=== PATIENT | female | born 1990 | race Two or more races ===

== ENCOUNTER 2021-05-29 11:40 | Emergency (ER) | payer MEDICAID, SELFPAY ==
[2021-05-29 12:03] VITALS: BP 130/74; PULSE 95; RESP 18; TEMP 36.9; O2SAT 99; BMI 30.1
--- NOTE | 2021-05-29 12:48 | ED_ITS ---
HPI - URI/Sore Throat General Chief Complaint: Upper Respiratory Symptoms Stated Complaint: cough, congestion Time Seen by Provider: 05/29/21 12:47 Source: patient Mode of arrival: ambulatory Limitations: language barrier History of Present Illness HPI Narrative: 30-year-old female presents for 3 days of headache, cough, nasal congestion, nausea, sore throat, shortness of breath. Patient lives with her significant other who has tested COVID positive. No fevers, no vomiting, no diarrhea, patient can eat and drink and is tolerating oral Patient is vaccinated with 2 vaccinations but no booster yet Related Data Previous Rx's Medication Instructions Recorded albuterol sulfate 90 mcg/actuation 2 puff INHALATION Q4-6H PRN #8.5 g 05/29/21 aerosol inhaler Allergies Allergy/AdvReac Type Severity Reaction Status Date / Time No Known Allergies Allergy Unverified 02/15/20 16:07 [No Known Allergies*] Review of Systems Constitutional: Constitutional: Reports body ache(s), Reports chills, Reports fatigue, Denies fever(s), Reports headache(s), Reports malaise and Denies weakness Eyes: Eyes: Denies diplopia ENT: Denies vertigo, Denies dizziness, Denies otalgia, Reports headache(s), Denies mouth pain, Denies post nasal drip, Denies sinus pain, Denies sinus pressure, Reports sore throat and Denies throat swelling Cardiovascular: Cardiovascular: Denies chest pain, Denies syncope, Denies leg edema, Denies lightheadedness, Denies Loss of Consciousness, Denies palpitations and Reports dyspnea Respiratory: Respiratory: Denies chest congestion, Reports cough and Reports dyspnea Gastrointestinal: Gastrointestinal: Denies abdominal pain, Denies hematochezia, Denies constipation, Denies diarrhea, Reports nausea and Denies vomiting Musculoskeletal: Musculoskeletal: Reports no additional musculoskeletal complaints Neurologic: Denies confusion, Denies vertigo, Denies dizziness, Denies syncope, Reports headache(s) and Denies weakness Psychiatric: Psychiatric: Denies anxiety, Denies confusion and Denies depression Endocrine: Endocrine: Reports fatigue and Denies palpitations Allergic/Immunologic: Allergic/Immunologic: Denies throat swelling PMFSH Social History Social History Advance Directives: No Advance Directives Information Provided: No Patient : No Physical Exam Vital Signs: Vital Signs: Last Vital Signs Temp 98.4 F 05/29/21 12:03 Pulse 95 05/29/21 12:03 Resp 18 05/29/21 12:03 BP 130/74 05/29/21 12:03 Pulse Ox 99 05/29/21 12:03 BMI result Body Mass Index 30.1 Const: General: No confusion Nutritional Appearance: well nourished Orientation/consciousness: No confusion Limitations: no limitations HENMT: Head: Yes normal to inspection, Yes normocephalic and Yes atraumatic Ears: hearing grossly normal bilaterally, external ears normal, TM's normal bilaterally and EAC's normal General nose exam: Normal external nose present Face and sinus: Yes normal facial exam and Yes sinuses nontender Mouth: moist mucous membranes Throat: Yes posterior oropharynx abnormal (Erythematous, no exudate) Eyes: Conjunctivae: conjunctivae normal Pupils: Equal, round and reactive pupils present EOM: EOMs intact bilaterally Neck: Neck: Yes full ROM, Yes no lymphadenopathy and Yes supple Resp: Effort & Inspection: normal respiratory effort and able to speak in complete sentences Auscultation: no crackles, no rales, no rhonchi, no wheezes and diminished lung sounds diffuse Cardio: Rate: regular rate Rhythm: regular rhythm Heart sounds: S1 normal heart sound present and S2 normal heart sound present GI: Inspection: Yes normal to inspection Palpation (GI): Soft to palpation, nontender, no guarding and not rigid Percussion: Yes normal to percussion Auscultation: normal bowel sounds Skin: General skin exam: no rashes or lesions noted Neuro: General: No confusion Cranial nerves: Yes Equal, round and reactive pupils present Extrem: General: Yes normal to inspection and Yes full ROM Psych: Appearance: grossly normal Affect: normal affect Attitude: coop erative Thought process: Normal thought process present Course Course Course Narrative: 30-year-old female with COVID like symptoms who lives with someone who tested COVID positive today but who tested COVID negative herself today presents to the ER for symptoms for 3 days. On exam, patient has stable vitals, she is satting 99% on room air, she is afebrile. Lungs are mildly diminished to auscultation. After albuterol treatment, patient is moving more air, and says she does not feel short of breath any longer. Will prescribe albuterol inhaler, counseled push fluids, rest, quarantine for 10 days despite negative COVID test, patient would probably test positive for COVID in the next day or so. All questions answered to patient's satisfaction. MDM - URI/Sore Throat Lab Data Labs: Lab Results 05/29/21 Range/Units 14:09 COVID-19 (JESÚS) Negative (Negative) COVID-19 Clin Com See Note Discharge Plan Discharge Clinical Impression: Upper respiratory infection Patient Disposition: Home, Self-Care Additional Instructions: You tested negative for COVID today. However your is positive, and you have all the symptoms. I would like you to stay home and quarantine for 10 days now provided you a note for that. I have also prescribed an albuterol inhaler. Please quarantine for 10 days, rest, drink fluids, take Tylenol, if you have worsening shortness of breath or chest pain, please return to the emergency room Hoy sobeida negativo para COVID. Sin embargo, frausto esposo es positivo y usted tiene todos los s?ntomas. Me gustar?a que se quedara en casa y se pusiera en cuarentena denis 10 d?as y ahora le proporcion? modesta nota para eso. Tambi?n le he recetado un inhalador de albuterol. Por favor, p?ngase en cuarentena denis 10 d?as, descanse, alexander l?quidos, tome Tylenol, si tiene dificultad para respirar o dolor en el pecho que empeora, regrese a la asaf de emergencias Prescriptions: New albuterol sulfate 90 mcg/actuation HFA aerosol inhaler 2 puff inhalation Q4-6H PRN (Reason: shortness of breath or wheezing) Qty: 8.5 RF: 0 Stand Alone Forms: Work/School Release Print Language: Sammarinese
[2021-05-29] MEDS: Albuterol Sulfate 90 MCG 8 GM INHALER 2 PUFF INHALE (13:45)
[2021-05-29] MEDS: Ibuprofen 800 MG TABLET PO (14:08)
[2021-05-29 14:51] LABS: COVID-19 Test Negative (Negative); IDNOW Serial# 9DD0AD1C
== END 2021-05-29 16:45 | disposition home or self-care (01) ==
PROVIDERS: Physician Assistant; Emergency Provider Emergency Medicine; PCP Internal Medicine
DX: J06.9 Acute upper respiratory infection, unspecified (principal); R05.9 Cough, unspecified; R06.02 Shortness of breath; R51.9 Headache, unspecified; Z20.822 Contact with and (suspected) exposure to COVID-19
CPT/HCPCS: 36415; 87635; 99283; 99284

== ENCOUNTER 2022-01-21 14:56 | Outpatient (REF) | payer MEDICAID, SELFPAY ==
[2022-01-21 15:17] LABS: MANUAL DIFF FLAG NO
[2022-01-21 15:42] LABS: Basophils Percent Auto 0.2 % (0-2); Eosinophils Percent Auto 0.5 % (0-4); Hematocrit 44.7 % (37.0-47.0); Hemoglobin 14.7 g/dl (12.0-16.0); Imm Gran Abs Auto 0.02 X10*3/uL (0.00-0.03); Imm Gran Pct Auto 0.2 % (0.0-0.4); Lymphocytes Absolute Auto 2.5 X10*3/uL (1.2-4.9); Lymphocytes Percent Auto 28.1 % (20-40); Mean Corpuscular HGB Conc 32.9 g/dl (31.0-35.0); Mean Corpuscular Hemoglobin 30.4 pg (27.0-33.0); Mean Corpuscular Volume 92.4 fL (80.0-98.0); Mean Platelet Volume 11.8 fL (9.4-12.3); Monocytes Absolute Auto 0.7 X10*3/uL (0.1-1.2); Monocytes Percent Auto 7.4 % (2-11); Neutrophils Absolute Auto 5.6 x10*3/uL (2.0-8.3); Neutrophils Percent Auto 63.6 % (45-73); Platelet Count 297 X10*3/uL (160-400); Red Blood Count 4.84 X10*6/uL (4.20-5.50); Red Cell Distribution Width 13.2 % (11.0-16.0); White Blood Count 8.8 X10*3/uL (4.8-10.8)
[2022-01-21 16:08] LABS: Alanine Aminotransferase 13 U/L (0-31); Albumin Level 4.1 g/dL (3.5-5.0); Alkaline Phosphatase 83 U/L (39-117); Anion Gap 14 (12-20); Aspartate Amino Transferase 13 U/L (5-31); Bilirubin Total 0.5 mg/dL (0.0-1.0); Blood Urea Nitrogen 12 mg/dL (9-16); Calcium 9.3 mg/dL (8.4-10.2); Carbon Dioxide 27 mmol/L (22-29); Chloride 104 mmol/L (96-108); Cholesterol 116 mg/dL; Estimated Glomerular Filt Rate > 60; Glucose Random 94 mg/dL (60-115); HDL Cholesterol 53 mg/dL; LDL Cholesterol Calculated 35 mg/dl; Potassium 4.7 mmol/L (3.3-5.1); Sodium 140 mmol/L (135-145); Total Protein 7.2 g/dL (6.5-8.0); Triglycerides 140 mg/dL
[2022-01-24 00:36] LABS: TS Negative Control Passed; TS Panel A 0; TS Panel B 0; TS Positive Control Passed; TSpotTB Negative (Negative)
== END 2022-01-21 14:57 | disposition home or self-care (01) ==
LOC: HO.LAB 14:56
PROVIDERS: PCP Internal Medicine; Visit Provider Internal Medicine
DX: Z00.00 Encounter for general adult medical examination without abnormal findings (principal); Z11.1 Encounter for screening for respiratory tuberculosis; H53.8 Other visual disturbances; G44.209 Tension-type headache, unspecified, not intractable
CPT/HCPCS: 36415; 80053; 80061; 85025; 86481

== ENCOUNTER 2022-07-02 08:58 | Outpatient (RCR) | payer MEDICAID, SELFPAY | END 2022-07-31 08:19 | disposition home or self-care (01) | LOC: HO.PT 08:58 | PROVIDERS: PCP Internal Medicine; Visit Provider Internal Medicine | DX: M54.50 Low back pain, unspecified (principal) | CPT/HCPCS: 97140; 97161 ==

== ENCOUNTER 2022-12-07 12:16 | Emergency (ER) | payer MEDICAID, SELFPAY ==
--- NOTE | ~2022-12-07 | US_ITS ---
EXAMINATION: US OBSTETRICAL ULTRASOUND CLINICAL INFORMATION: Lower abdominal pain. 9 weeks COMPARISON: None available. LMP: 09/03/2022. Gestational age by maternal dates is 13 weeks 4 days. Estimated date of delivery by maternal dates is 06/10/2023. TECHNIQUE: Both transabdominal endovaginal scanning was performed. FINDINGS: There is a single intrauterine gestational sac with visible yolk sac, embryo/fetus, and cardiac activity. There is no significant subchorionic hemorrhage or hematoma. HR: 174 beats per minute. CRL (crown rump length): 2.02 cm (8 weeks 5 days +/- 4 days). HARIS (estimated date of delivery): 07/14/2023 +/- 4 days. MATERNAL ADNEXA: The right maternal ovary measures 2.8 x 1.8 x 1.7 cm. The left maternal ovary measures 3.4 x 2.3 x 1.9 cm which includes a 2.0 x 1.9 x 1.8 cm corpus luteum cyst. There is no significant maternal adnexal mass. No maternal pelvic ascites. US/US OB pelvic and transvaginal IMPRESSION: 1. Single intrauterine gestation with ultrasound gestational age of 8 weeks 5 days +/- 4 days. 2. Estimated date of delivery is 07/14/2023 +/- 4 days. 3. No maternal adnexal mass or pelvic ascites.
--- NOTE | 2022-12-07 12:36 | ED.GENADULT ---
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 She is a G3 T1 L1, with reported last menstrual period 09/03/2022, with estimated due date 06/12/2022 was not yet received obstetric care, has appointment scheduled for 12/14/2022 through [facility]. She states that this morning she was bending forward when she realized she has developed sudden pain to the lower abdomen. Pain is localized diffusely across the lower abdomen at times is worse on 1 side or the other. Pain is made worse with particular movements. She does report associated nausea for which she has already been prescribed Reglan outpatient which has been helping. She denies fevers, chills, upper abdominal pain, dysuria, urinary frequency/urgency/hesitancy, the patient, diarrhea, vaginal bleeding, abnormal vaginal discharge. Related Data Previous Rx's Medication Instructions Recorded albuterol sulfate 90 mcg/actuation 2 puff inhalation Q4-6H PRN 05/29/21 aerosol inhaler shortness of breath or wheezing #8.5 grams Allergies Allergy/AdvReac Type Severity Reaction Status Date / Time No Known Allergies Allergy Verified 12/07/22 12:36 [No Known Allergies*] Review of Systems Review of Systems: Constitutional : No Weight loss, No Fever, No Chills ENT/Mouth :? No sore throat, No Rhinorrhea Eyes: No Swelling, No Redness Cardiovascular : No Chest Pain, No SOB, No Edema Respiratory : No Cough, No Sputum, No Wheezing Gastrointestinal : Positive Nausea, no Vomiting, no Diarrhea, positive abdominal pain, No Hematochezia, No Melena Genitourinary : No Dysuria, No Urinary Frequency, No Hematuria, No Urgency? Musculoskeletal : No joint pain, No Myalgias, No Joint Swelling Skin : No Skin Lesions, No rash Neuro : No Weakness, No Numbness, No Dizziness, No Headache Psych : No Anxiety/Panic, No Depression Heme/Lymph: No Bruising, No Lymphadenopathy Endocrine : No Polyuria, No Polydipsia Yes all other systems are reviewed and are negative [facility] Past Medical History Attestation statement: The following information was validated with the patient. Source: old records reviewed Social History Social History Alcohol intake: never Smoked in Last 30 Days: No Use of substances other than those prescribed or required for medical reasons: No Advance Directives: No Advance Directives Information Provided: No Patient : Yes Physical Exam ED Vital Signs: Vital Signs - 24 hr 12/07/22 12:37 12/07/22 16:20 12/07/22 18:42 Temperature 98 F 98.4 F Pulse Rate 99 82 89 Respiratory Rate 19 18 16 Blood Pressure 130/80 127/77 117/76 Pulse Oximetry 96 99 98 Oxygen Delivery Method Room Air Room Air Room Air BMI result Body Mass Index 30.1 Appearance: Alert.?Oriented to person, place and time. No acute distress.?Normal affect. Eyes: Pupils equal, round and reactive to light.? ENT: Pharynx normal.?? Neck: Normal inspection.? Neck supple.?? CVS: Heart sounds normal. Normal heart rate and rhythm.? Pulses normal.?? Respiratory: No respiratory distress.? Lung sounds clear to auscultation bilaterally?? Abdomen: Soft and non-tender. Normoactive bowel sounds. Skin: Skin warm and dry.? Normal skin color.? Extremities: No lower extremity edema.? Neuro: Moves all extremities spontaneously. Sensation intact bilaterally. No focal neuro deficits. Ambulates with normal steady gait. Course Course Course Narrative: This is an RME: Additional HPI, ROS, PE not included below will be deferred to primary provider. Patient is a 32 yo female who reports she is 9 weeks presenting with lower abdominal pain for a few hours. Patient has not yet recieved an ultrasound to confirm intrauterine . Patient reports nausea. patient denies vaginal bleeding, trauma to the abdomen, or vomiting. Patient is A1. Plan: Labs Reevaluation(s) Reevaluation #1: Ultrasound revealing a single intrauterine gestation with gestational age of 8 weeks 5 days, no adnexal mass present. At this time suspect pain to be most likely musculoskeletal in nature, as it is exacerbated with movement. Discussed with patient the use of acetaminophen for pain, avoidance of NSAIDs during . Reviewed worrisome signs and symptoms that would warrant re-evaluation in the emergency department. All questions were answered. Stable for discharge. Outpatient follow-up with her obstetrics provider as scheduled Time: 19:24 Medical Decision Making Medical Decision Making [facility] Narrative: Patient is a 32-year-old female G3 T1 L1 with no reported past medical history presenting to emergency department for evaluation of abdominal pain in the setting of . At the time my examination she is overall well-appearing. She is afebrile without tachycardia. Reviewed serum labs obtained from rapid medical examination, mild leukocytosis which may be in part reactive due to nausea/vomiting, CMP is overall unremarkable. HCG consistent with 6-12 weeks. Urinalysis is without any evidence of infection. Will obtain pelvic ultrasound to confirm intrauterine and/or potential complication. Lower suspicion for appendicitis/diverticulitis at this time. Differential Diagnosis Differential Diagnoses: The differential diagnosis associated with the presentation includes (Urinary tract infection, musculoskeletal pain, ectopic , ovarian cyst, diverticulitis, appendicitis) Admission/Observation Consideration of admission/observation: Escalation of care including admission/observation considered (I considered admission for abdominal pain in the setting of , see further elaboration in course) Lab Data [facility] Lab Attestation statement: I reviewed the patient's lab results. (See narrative above) 12/07/22 13:30 12/07/22 13:30 Labs: Lab Results 12/07/22 12/07/22 12/07/22 Range/Units 13:30 13:30 13:30 WBC 13.8 H (4.8-10.8) X10*3/uL RBC 4.60 (4.20-5.50) X10*6/uL Hgb 13.7 (12.0-16.0) g/dl Hct 41.7 (37.0-47.0) % MCV 90.7 (80.0-98.0) fL MCH 29.8 (27.0-33.0) pg MCHC 32.9 (31.0-35.0) g/dl RDW 12.9 (11.0-16.0) % Plt Count 367 (160-400) X10*3/uL MPV 10.4 (9.4-12.3) fL Immature Gran % (Auto) 0.3 (0.0-0.4) % Neut % (Auto) 75.9 H (45-73) % Lymph % (Auto) 14.8 L (20-40) % [place] % (Auto) 8.6 (2-11) % Eos % (Auto) 0.2 (0-4) % Baso % (Auto) 0.2 (0-2) % Lymph # (Auto) 2.0 (1.2-4.9) X10*3/uL [place] # (Auto) 1.2 (0.1-1.2) X10*3/uL Eos # (Auto) 0.0 (0.0-0.4) X10*3/uL Baso # (Auto) 0.0 (0.0-0.2) X10*3/uL Abs Immat Gran (auto) 0.04 H (0.00-0.03) X10*3/uL Absolute Neuts (auto) 10.4 H (2.0-8.3) x10*3/uL Absolute Nucleated RBC 0.000 (0.0-0.012) X10*3/uL Nucleated RBC % (auto) 0.0 (0.0-0.2) /100WBC Sodium 139 (135-145) mmol/L Potassium 3.8 (3.3-5.1) mmol/L Chloride 105 (96-108) mmol/L Carbon Dioxide 23 (22-29) mmol/L Anion Gap 15 (12-20) BUN 7 L (9-16) mg/dL Creatinine 0.75 (0.5-1.4) mg/dL Estim Creat Clear Calc 106.8 Estimated GFR > 60 Random Glucose 89 (60-115) mg/dL Calcium 9.9 D (8.4-10.2) mg/dL Magnesium 1.9 (1.6-2.6) mg/dL Total Bilirubin 0.2 (0.0-1.0) mg/dL AST 14 (5-31) U/L ALT 12 (0-31) U/L Alkaline Phosphatase 60 (39-117) U/L Total Protein 6.7 (6.5-8.0) g/dL Albumin 3.7 (3.5-5.0) g/dL Beta HCG, Quant 57785 mIU/mL Urine Color Urine Appearance Urine pH (5.0-9.0) Ur Specific [place] (1.005-1.025) Urine Protein (Neg-Trace) mg/dL Urine Glucose (UA) (Negative) mg/dL Urine Ketones (Negative) mg/dL Urine Blood (Negative) Urine Nitrite (Negative) Ur Leukocyte Esterase (Negative) COVID-19 (JESÚS) (Negative) COVID-19 Clin Com 12/07/22 12/07/22 Range/Units 13:30 17:58 WBC (4.8-10.8) X10*3/uL RBC (4.20-5.50) X10*6/uL Hgb (12.0-16.0) g/dl Hct (37.0-47.0) % MCV (80.0-98.0) fL MCH (27.0-33.0) pg MCHC (31.0-35.0) g/dl RDW (11.0-16.0) % Plt Count (160-400) X10*3/uL MPV (9.4-12.3) fL Immature Gran % (Auto) (0.0-0.4) % Neut % (Auto) (45-73) % Lymph % (Auto) (20-40) % [place] % (Auto) (2-11) % Eos % (Auto) (0-4) % Baso % (Auto) (0-2) % Lymph # (Auto) (1.2-4.9) X10*3/uL [place] # (Auto) (0.1-1.2) X10*3/uL Eos # (Auto) (0.0-0.4) X10*3/uL Baso # (Auto) (0.0-0.2) X10*3/uL Abs Immat Gran (auto) (0.00-0.03) X10*3/uL Absolute Neuts (auto) (2.0-8.3) x10*3/uL Absolute Nucleated RBC (0.0-0.012) X10*3/uL Nucleated RBC % (auto) (0.0-0.2) /100WBC Sodium (135-145) mmol/L Potassium (3.3-5.1) mmol/L Chloride (96-108) mmol/L Carbon Dioxide (22-29) mmol/L Anion Gap (12-20) BUN (9-16) mg/dL Creatinine (0.5-1.4) mg/dL Estim Creat Clear Calc Estimated GFR Random Glucose (60-115) mg/dL Calcium (8.4-10.2) mg/dL Magnesium (1.6-2.6) mg/dL Total Bilirubin (0.0-1.0) mg/dL AST (5-31) U/L ALT (0-31) U/L Alkaline Phosphatase (39-117) U/L Total Protein (6.5-8.0) g/dL Albumin (3.5-5.0) g/dL Beta HCG, Quant mIU/mL Urine Color Yellow Urine Appearance Clear Urine pH 5.5 (5.0-9.0) Ur Specific [place] 1.015 (1.005-1.025) Urine Protein Negative (Neg-Trace) mg/dL Urine Glucose (UA) Negative (Negative) mg/dL Urine Ketones Negative (Negative) mg/dL Urine Blood Negative (Negative) Urine Nitrite Negative (Negative) Ur Leukocyte Esterase Negative (Negative) COVID-19 (JESÚS) Negative (Negative) COVID-19 Clin Com See Note Independent Interpretation I performed an independent interpretation of an: Ultrasound Radiology Impression Discussion of test interpretation with radiology: I have reviewed the radiologist's reading. Radiologist Impression: US/US OB pelvic and transvaginal IMPRESSION: 1. Single intrauterine gestation with ultrasound gestational age of? 8 weeks 5 days +/- 4 days. 2. Estimated date of delivery is 07/14/2023 +/- 4 days. 3. No maternal adnexal mass or pelvic ascites. Tests considered The following testing was considered but not selected: Considered CT of the abdomen and pelvis for evaluation of diverticulitis/appendicitis however given she is currently have a lower suspicion based on clinical examination at this time CT imaging was deferred. Discharge Plan Discharge Clinical Impression: Abdominal pain Patient Disposition: Home, Self-Care Instructions: Abdominal Pain (ED) Additional Instructions: As discussed your blood work today was overall normal. Your urine does not show any evidence of infection. Your ultrasound shows that you have an intrauterine , this is a normal finding. It is estimated that you are approximately 8 weeks with estimated due date of 07/14/2023. Please follow-up with your OB provider for further management. You can take Tylenol 500 mg, 2 tablets (1,000mg) every 4-6 hours as needed for pain, but not to exceed 3 doses daily (3,000mg).? Please return back to the emergency department any new or worsening symptoms or concerns. Prescriptions: No Action albuterol sulfate 90 mcg/actuation HFA aerosol inhaler 2 puff inhalation Q4-6H PRN (Reason: shortness of breath or wheezing) Qty: 8.5 0RF Referrals: Alejandrina Miller MD [Primary Care Provider] -
[2022-12-07 12:37] VITALS: BP 130/80; PULSE 99; RESP 19; TEMP 36.6; O2SAT 96; BMI 30.1
[2022-12-07 13:52] LABS: Alanine Aminotransferase 12 U/L (0-31); Albumin Level 3.7 g/dL (3.5-5.0); Alkaline Phosphatase 60 U/L (39-117); Anion Gap 15 (12-20); Aspartate Amino Transferase 14 U/L (5-31); Bilirubin Total 0.2 mg/dL (0.0-1.0); Blood Urea Nitrogen 7 mg/dL (9-16); Calcium 9.9 mg/dL (8.4-10.2); Carbon Dioxide 23 mmol/L (22-29); Chloride 105 mmol/L (96-108); Creatinine Clr Calc Pharmacy 106.8; Estimated Glomerular Filt Rate > 60; Glucose Random 89 mg/dL (60-115); Magnesium 1.9 mg/dL (1.6-2.6); Potassium 3.8 mmol/L (3.3-5.1); Sodium 139 mmol/L (135-145); Total Protein 6.7 g/dL (6.5-8.0)
[2022-12-07 16:20] VITALS: BP 127/77; PULSE 82; RESP 18; O2SAT 99
[2022-12-07 18:05] LABS: Appearance Urine Clear; Color Urine Yellow; Glucose Urine UA Negative (Negative); Leukocyte Esterase Urine Negative (Negative); Nitrite Urine Negative (Negative); PH 5.5 (5.0-9.0); Specific Gravity - Urine 1.015 (1.005-1.025); Urine Blood Negative (Negative); Urine Ketones Negative (Negative); Urine Protein Negative (Neg-Trace)
[2022-12-07 18:42] VITALS: BP 117/76; PULSE 89; RESP 16; TEMP 36.9; O2SAT 98
--- NOTE | 2022-12-07 19:48 | PC.NURSE ---
Reviewed discharge instruction with pt, pt verbalized understanding. no sob or chest pian. No sign of distress.
--- NOTE | 2022-12-07 19:50 | PC.NURSE ---
Notified ARI guerrero pt was discharge by this RN.
== END 2022-12-07 19:51 | disposition home or self-care (01) ==
PROVIDERS: Physician Assistant; Emergency Provider Internal Medicine; PCP Internal Medicine
DX: O26.91 Pregnancy related conditions, unspecified, first trimester (principal); R10.2 Pelvic and perineal pain; Z3A.09 9 weeks gestation of pregnancy; Z20.822 Contact with and (suspected) exposure to COVID-19; Z20.828 Contact with and (suspected) exposure to other viral communicable diseases; Z79.899 Other long term (current) drug therapy
CPT/HCPCS: 36415; 76801; 76817; 80053; 81003; 83735; 84702; 85025; 87635; 99284

== ENCOUNTER 2023-05-19 14:16 | Emergency (ER) | payer MEDICAID, SELFPAY ==
[2023-05-19 14:21] VITALS: BP 129/84; PULSE 113; RESP 19; TEMP 36.6; O2SAT 98; BMI 35.1
--- NOTE | 2023-05-19 14:39 | ED_ITS ---
HPI - General Adult General Chief complaint: General Medical Stated complaint: 36 Wks W/Flu Symptoms Time Seen by Provider: 05/19/23 14:54 Source: patient Mode of arrival: ambulatory Limitations: no limitations History of Present Illness HPI narrative: 32 YOLD FEMALE 36 WEEKS A1 presents to the ED abdominal pain that is constant and described as pressure with generalized body aches. Patient denies any vaginal discharge or vaginal bleeding. Patient denies any clear liquid discharge from vaginal area. Patient denies any recent trauma. Patient states no chest pain or shortness of breath. Related Data Previous Rx's Medication Instructions Recorded albuterol sulfate 90 mcg/actuation 2 puff inhalation Q4-6H PRN 05/29/21 aerosol inhaler shortness of breath or wheezing #8.5 grams Allergies Allergy/AdvReac Type Severity Reaction Status Date / Time No Known Allergies Allergy Verified 12/07/22 12:36 [No Known Allergies*] Review of Systems Review of Systems: Abdominal pain described as pressure 36 weeks Yes all other systems are reviewed and are negative [facility] Social History Social History Alcohol intake: never Advance Directives: No Advance Directives Information Provided: No Physical Exam ED Vital Signs: Vital Signs - 24 hr 05/19/23 14:21 05/19/23 16:48 Temperature 98 F Pulse Rate 113 H Respiratory Rate 19 116 H Blood Pressure 129/84 145/69 H Pulse Oximetry 98 100 Oxygen Delivery Method Room Air Room Air BMI result Body Mass Index 35.1 Const General: cooperative, healthy appearing, comfortable, no acute distress, well developed, alert, awake and Physically active Orientation/consciousness: oriented to person, oriented to place, oriented to time and patient oriented x3 HENMT Head: Yes normal to inspection, Yes No palpable skull fracture present, Yes normocephalic and Yes atraumatic Throat: Yes posterior oropharynx normal, Yes tonsils normal and Yes uvula midline Eyes General: appearance normal, both eyes and all related structures Neck Neck: Yes normal visual inspection, Yes full ROM, Yes no lymphadenopathy, Yes no meningeal signs, Yes trachea midline, Yes supple, No anterior neck swelling and No tender Chest Chest palpation & inspection: normal inspection of the chest and normal palpation of entire chest wall Resp Effort & Inspection: normal respiratory effort and able to speak in complete sentences Auscultation: clear to auscultation bilaterally Cardio Jugular venous distension: no JVD GI Inspection: Yes normal to inspection, No abdominal wall ecchymosis and Yes distended () Palpation (GI): Soft to palpation, not firm, Tenderness to palpation present (GI) (generalized), no guarding and not rigid General: No CVA tenderness and Yes no CVA tenderness Speculum Exam - Vagina: abnormal vaginal discharge (clear liquid) Speculum Exam - Cervix: Other cervical findings present (external os is 1cm thick. internal os is closed. ) Back/Spine/Pelvis Back: no CVA tenderness, No CVA tenderness and No back tenderness Skin General skin exam: no rashes or lesions noted and elasticity normal Neuro General: oriented to person, oriented to place, oriented to time, patient oriented x3, gait normal, tone normal, moves all extremities, Normal light touch and pain sensation, no meningeal signs, no focal motor deficits, CN's II-XI intact bilaterally and normal sensation to monofilament Extrem General: Yes normal to inspection and Yes full ROM Psych Appearance: grossly normal, well kempt and not disheveled Course Course Course Narrative: RME; 32 yold female with A1 presents to the ED for abdominal pain and bodyaches. Patient follows at [facility]. Her OBGYN Doctor Kathie Kirk. Spoke with [facility] transfer line. Waiting for OBGYN to call back. covid ordered. Heart rate is 157. Medications Administered Discontinued Medications Generic Name Dose Route Start Last Admin Trade Name Freq PRN Reason Stop Dose Admin Sodium Chloride 1,000 mls @ 999 mls/hr 05/19/23 15:37 05/19/23 15:43 Ns IV 05/19/23 16:37 999 mls/hr .Q1H1M STA Administration Sodium Chloride 1,000 mls @ 999 mls/hr 05/19/23 15:45 05/19/23 15:43 Ns IV 05/19/23 16:45 999 mls/hr .Q1H1M WILLIAM Administration Prochlorperazine Edisylate 5 mg 05/19/23 15:37 05/19/23 15:43 Prochlorperazine Edisylate 10 Mg/2 Ml Vial IVPUSH 05/19/23 15:38 5 mg ONCE ONE Administration Medical Decision Making Medical Decision Making MDM Narrative: 32-year-old female 36 week A1 presents to ED for abdominal pain described as pressure since 06:00am with generalized body aches. Patient denies any vaginal bleeding, vaginal discharge or obvious clear vaginal liquid discharge. Patient states no chest pain or shortness of breath. Patient follows at [facility] Dr. Kathie Carmichael. Spoke with Dr. Brito our OBGYN on- call recommends patient be transferred to [facility]. Initially spoke with Dr. Silverman of [facility] OBGYN and waiting for call back. But due to patient now stating feeling more abdominal pressure, looks uncomfortable and there clear liquid in vaginal vault as per physical exam by Dr. López its best for patient to go immediately to [facility]. Case accepted by OBGYN Dr. Heard of [facility] who wants patient transferred to [facility] for observation. covid swab negative. [facility] informed patient will be going to [facility]. Differential Diagnosis Differential Diagnoses: The differential diagnosis associated with the presentation includes (Pre term labor, Placenta previa, placenta abruption) Lab Data [facility] Lab Attestation statement: I reviewed the patient's lab results. Labs: Lab Results 05/19/23 Range/Units 14:59 COVID-19 (JESÚS) Negative (Negative) COVID-19 Clin Com See Note Independent Historian Clinical information obtained from an independent historian. History obtained from or confirmed by: Spouse External Record Review External record reviewed: Other (Prior visits) Discharge Plan Discharge Clinical Impression: 36 weeks gestation of , Abdominal pain Patient Disposition: er Acute Care Hospital Transfer Details: [facility] Instructions: Abdominal Pain in (ED) Prescriptions: No Action albuterol sulfate 90 mcg/actuation HFA aerosol inhaler 2 puff inhalation Q4-6H PRN (Reason: shortness of breath or wheezing) Qty: 8.5 0RF Interventions: Acute Care Transfer Worksheet (ED) Last Done: 05/19/23 17:46 Discharge Date/Time: 05/19/23 17:48 Print Language: Kittitian
--- NOTE | 2023-05-19 14:57 | P.CONOB_ITS ---
OB Consult Note - [facility] Data Service Date: 05/19/23 Primary Care Provider: Alejandrina Miller MD Narrative I was consulted at 257 regarding Qian Angulo for is a 32 year old female at 36 weeks of gestation presented emergency room with abdominal cramping or leakage of fluid or bleeding. Good movements. OB [facility] Social History Social History Alcohol intake: never Meds Allergies Allergy/AdvReac Type Severity Reaction Status Date / Time No Known Allergies Allergy Verified 12/07/22 12:36 [No Known Allergies*] OB Physical Exam Evaluation Gestational Age: heart rate reported to be 156 OB - CN: A/P Assessment and Plan (1) 36 weeks gestation of : Status: Acute Plan Recommended to ELIZABETH Loja in the emergency room to perform a cervical exam to make sure the patient does not have advanced cervical dilatation and transferred the patient out to [facility] since there is no maternity at [facility] available. I spent a total of 20 minute reviewing the chart, communicating to the emergency room provider and documenting in the medical record. Time Spent With Patient Time: Total time managing care of this patient today ____ minutes.
[2023-05-19 15:16] LABS: COVID-19 Test Negative (Negative); IDNOW Serial# 08D9AD1C
--- NOTE | 2023-05-19 15:34 | PC.NURSE ---
pt was changed into hospital attire- this nurse at bedside with MD López during pelvic exam- 20g IV placed in L- AC awaiting fluid orders and antiemetics
[2023-05-19] MEDS: Prochlorperazine Edisylate 10 MG/2 ML VIAL 5 MG IVPUSH (15:43)
[2023-05-19] MEDS: 0.9 % Sodium Chloride 1,000 ML 999 ML IV ×2 (15:43)
[2023-05-19 16:48] VITALS: BP 145/69; RESP 116; O2SAT 100
--- NOTE | 2023-05-19 17:17 | PC.NURSE ---
called report over to Frances CUI RN- awaiting ETA for transport
--- NOTE | 2023-05-19 17:47 | PC.NURSE ---
pt transferred via clint [facility] to [facility]
== END 2023-05-19 17:48 | disposition short-term general hospital (02) ==
PROVIDERS: Physician Assistant; Emergency Provider Emergency Medicine; PCP Internal Medicine
DX: O26.93 Pregnancy related conditions, unspecified, third trimester (principal); Z3A.36 36 weeks gestation of pregnancy; Z20.822 Contact with and (suspected) exposure to COVID-19; Z20.828 Contact with and (suspected) exposure to other viral communicable diseases
CPT/HCPCS: 87635; 96374; 99285; J0737

== ENCOUNTER 2024-06-24 08:24 | Emergency (ER) | payer MEDICAID, SELFPAY ==
[2024-06-24 08:35] VITALS: BP 117/71; PULSE 92; RESP 16; TEMP 36.7; O2SAT 98; BMI 31.7
--- OUTSIDE RECORDS SUMMARY | 2024-06-24 08:53 | XMS_ITS | Clinical Summary ---
Author Organization [facility] it Address [address] [place] [address] Care Team Providers Care Payer Specialist Name Role Phone Alejadnrina Miller MD Primary Care Provider [phone] Allergies No known active allergies Medications Medication Sig Dispensed Refills Start Date End Date Status acetaminophen (TYLENOL) 500 mg tablet TAKE 2 TABLETS BY MOUTH EVERY 6 HOURS NEEDED FOR PAIN FOR UP TO 30 DAYS. 09/23/2023 Active famotidine (PEPCID) 20 mg tablet TAKE 1 TABLET BY MOUTH TWICE A DAY 08/20/2023 Active metoclopramide (REGLAN) 10 mg tablet Take 1 Tablet by mouth 4 times daily as needed (nausea). 05/20/2023 Active norelgestromin-ethinyl estradiol (ORTHO EVRA) 150-35 mcg/24 hr APPLY 1 PATCH ONCE A WEEK 02/18/2024 Active vit,[id number]-updg-rhokc (Prenatabs FA) 29-1 mg tablet Take 1 Tablet by mouth daily. 10/27/2023 Active Active Problems Problem Noted Date Diagnosed Date GBS (group B Streptococcus c arrier), +RV culture, currently 06/16/2023 Overview (05/02/2024): treat in labor Abdominal wall pain in periumbilical region 03/31 Overview (05/02/2024): Last Assessment & Plan: I counseled Qian that there is no evidence of infection, labor, or abruption based on her exam. I will send culture for GC/CT, but I suspect it will be negative. She was counseled re: likely cause of her pain and encouraged to stretch or use ice or gentle heat if helpful. She is likely having some muscle spasms there as well. Call if worsening or other new concerns. Immunizations Name Administration Dates Next Due Influenza Quadravalent, MDCK , 0.5ml, preservative free (Flucelvax) 6mo and older 03/22/2023 Influenza trivalent, 0.5mL, preservative free (Fluarix; FluLaval; Fluzone) ages 6mo and older (Afluria) 3 years and older 03/06/2024 Influenza, Unspecified 02/28/2018 Swapferit SARS-CoV-2 COVID-19, mRNA, LNP-S, preservative free 03/06/2024 Tdap Tetanus diptheria acell ular pertussis (Boostrix; Adacel) 7yo and older 04/19/2023,08/02/2018 Surgical History Surgery Date Site/Laterality Comments OTHER SURGICAL HISTORY PROCEDURE: DENIES PREVIOUS SURGERY Medical History Medical History Date Comments Obesity 12/16/2022 DX:Obesity; COMM ENT: bmi 32.4 Abnormal Pap smear of cervix 2017 DX: Abnormal Pap smear of cervix Family History Medical History Relation Name Comments Asthma Brother x1 Other: Other Brother x1 seizures Diabetes Maternal Grandmother Hypertension Maternal Grandmother Hypertension Mother Breast cancer Mother's side great aunt No Known Problems Sister x2 Other: Other Son autism level 2, heart murmur Colon cancer Neg Hx Ovarian cancer Neg Hx Relation Name Status Comments Brother x1 Father Alive Maternal Grandfather Maternal Grandmother Mother Alive Mother's side great aunt Sister x2 Alive Son Alive Cardiac surgery at [facility] Autism spectrum Social History Tobacco Use Types Packs/Day Years Used Date Smoking Tobacco: Never Smokeless Tobacco: Never Alcohol Use Standard Drinks/Week Comments No 0 (1 standard drink = 0.6 oz pur e alcohol) Sex and Gender Information Value Date Recorded Sex Assigned at Not on file Gender Identity Not on file Sexual Orientation Not on file Obstetrics History Last Filed Vital Signs Vital Sign Reading Time Taken Comments Blood Pressure 123/83 08/09/2023 1:58 PM EDT Pulse 96 08/09/2023 1:58 PM EDT Temperature - - Respiratory Rate - - Oxygen Saturation - - Inhaled Oxygen Concentration - - Weight 83 kg (183 lb) 08/09/2023 1:58 PM EDT Height 160 cm (5' 3 ) 03/22/2023 1:18 PM EDT Body Mass Index 32.42 03/22/2023 1:18 PM EDT Plan of Treatment Upcoming Encounters Date Type Department Care Team (Late st Contact Info) Description 07/11/2024 2:30 PM EST Office Visit Obstetrics & Gynecology - [address] [address] Jazmine Conti, CNM [address] [place] [address] Health Maintenance Due Date Last Done Comments Hepatitis B Vaccines (1 of 3 - 19+ 3-dose series) 09/21/2010 Cholesterol Screening (Lipid Panel) 05/03/2022 Depression Screening 05/03/2022 Social Influencers of Health Screening 05/03/2022 Hypertension/CHF/CAD Annual BMP Blood Test 07/16/2023 COVID-19 Vaccine (2 - 2023-2 5 season) 2024 03/06/2024 Cervical Cancer Screening: HPV 11/12/2025 11/12/2020 DTaP,Tdap,and Td Vaccines (3 - Td or Tdap) 04/19/2033 04/19/2023, 08/02/2018 HIV Screening Completed 12/23/2022 Hepatitis C Screening Completed 12/23/2022 Influenza Vaccine Completed 03/06/2024, 03/22/2023, 02/28/2018 HIB Vaccines Aged Out No longer eligi ble based on patient's age to complete this topic HPV Vaccines Aged Out No longer eligi ble based on patient's age to complete this topic Hepatitis A Vaccines Aged Out No long er eligible based on patient's age to complete this topic IPV Vaccines Aged Out No longer eligi ble based on patient's age to complete this topic MMR Vaccines Aged Out No longer eligi ble based on patient's age to complete this topic Meningococcal ACWY Vaccine Aged Out N o longer eligible based on patient's age to complete this topic Pneumococcal Vaccine: Pediatrics (0 to 5 Years) and At-Risk Patients (6 to 64 Years) Aged Out No longer eligible b ased on patient's age to complete this topic RSV Immunization Patients Under 20 months Aged Out No longer eligible b ased on patient's age to complete this topic Varicella Vaccines Aged Out No longer eligible based on patient's age to complete this topic Procedures Procedure Name Priority Date/Time Associated Diagnosis Comments HEPATITIS C SCREENING Routine 12/23/2022 HIV SCREENING Routine 12/23/2022 HPV Routine 11/12/2020 from Last 3 Months or Most Recently Relevant to Health Maintenance Results * HIV Screening (12/23/2022) HIV Screening Abstracted Historical Provider [facility] * Hepatitis C Screening (12/23/2022) Hepatitis C Screening Abstracted Historical Provider MD ISAIAH REINA E * Cervical Cancer Screening: HPV (11/12/2020) Cervical Cancer Screening: HPV No Interpretation , Abstracted Historical Provider MD ISAIAH Mujica from Last 3 Months or Most Recently Relevant to Health Maintenance Care Teams Payer Specialist Relationship Specialty Start Date End Date Alejandrina Miller MD [address] [place] [address] [place] [address] PCP - General 12/15/22
--- NOTE | 2024-06-24 09:27 | ED.EYEPROB ---
HPI - Eye Problem General Chief complaint: Eye Problems Stated complaint: eye problems Time Seen by Provider: 06/24/24 09:04 Source: patient Mode of arrival: ambulatory Limitations: no limitations History of Present Illness ED Provider: Melissa Way NP HPI Narrative: Patient is a 33-year-old female presents emergency department for evaluation. She reports that she had eyelash extensions placed yesterday for the first time. She has a continuous feeling that there is something in her left eye it is mildly painful and irritating. She denies blurred vision. Denies photophobia. She does not wear contact lenses. She denies any penetrating injury. Related Data Previous Rx's ?Medication ?Instructions ?Recorded albuterol sulfate 90 mcg/actuation 2 puff inhalation Q4-6H PRN 05/29/21 aerosol inhaler shortness of breath or wheezing #8.5 grams ofloxacin 0.3 % eye drops 2 drp ophthalmic (eye) QID 5 days 06/24/24 #5 mL Allergies Allergy/AdvReac Type Severity Reaction Status Date / Time No Known Allergies Allergy Verified 06/24/24 08:37 [No Known Allergies*] Review of Systems Review of Systems: Yes all other systems are reviewed and are negative [facility] Past Medical History Attestation statement: The following information was validated with the patient. Source: old records reviewed Social History Social History Alcohol intake: never Advance Directives: No Advance Directives Information Provided: No Physical Exam Vital Signs: Vital Signs: Last Vital Signs Temp 98.1 F 06/24/24 08:35 Pulse 92 06/24/24 08:35 Resp 16 06/24/24 08:35 BP 117/71 06/24/24 08:35 Pulse Ox 98 06/24/24 08:35 O2 Del Method Room Air 06/24/24 08:35 BMI result Body Mass Index 31.7 Appearance: Alert.?Oriented to person, place and time. No acute distress.?Normal affect. Eyes: Pupils equal, round and reactive to light.? EOMI. No nystagmus. Conjunctival normal. Sclera injected on the left; 01:00 o'clock-06:00 o'clock. Visual acuity: Left - 20/25, Right - 20/20. Fluorescein staining on the left with uptake at 06:00 o'clock, as well as multiple areas between 01:00 o'clock and 03:00 o'clock No chemosis. No hyphema. CVS: Heart sounds normal. Normal heart rate and rhythm.? Pulses normal.?? Respiratory: No respiratory distress.? Lung sounds clear to auscultation bilaterally?? Skin: Skin warm and dry.? Normal skin color.? Extremities: No lower extremity edema.? Neuro: Moves all extremities spontaneously. Ambulates with normal steady gait. Medical Decision Making Medical Decision Making MDM Narrative: Patient is a 33-year-old female presents emergency department for evaluation pain and a foreign body sensation to the left eye as per HPI in the setting of having lash extensions placed yesterday. On evaluation, she does appear to have lid parent lump of adhesive to the bottom midline, has fluorescein uptake in multiple areas as per PE portion of this note consistent with corneal abrasion. I did discuss with her having close contact today with her last serology technician. If she is unable to be seen for removal of this lump adhesive she should entirely remove the lashes at home as instructed by her serology technician. Advised that continued abrasion to the eye may result in more serious complications such as ulceration, deeper infection, potentially vision threatening. Provided with contact information for Dr. Manuel's office to follow-up this coming week. Provided with antibiotic eyedrops which were sent to the pharmacy. No painful hordeolum or painless chalazion on examination. No evidence of foreign body on examination, lid eversion is negative. No associated unilateral headache, fixed pupil, associated vomiting, or increased intra-ocular pressure to suggest acute angle glaucoma. No periorbital edema erythema or warmth to suggest periorbital cellulitis, no painful EOMI to suggest orbital cellulitis. Not described as a severe constant boring pain worse at night in the morning, nonradiating, to suggest scleritis. No ciliary flushing or consensual photophobia to suggest uveitis/iritis. On examination does not have corneal opacity or infiltrate with foreign body sensation, mucopurulent discharge or hypopyon in the setting of a presumed recent conjunctivitis to suggest keratitis. Atraumatic in nature, not consistent with penetrating injury or globe rupture additionally no hyphema. No painless acute loss of vision to suggest retinal detachment, vitreous detachment for hemorrhage. Differential Diagnosis Differential Diagnoses: The differential diagnosis associated with the presentation includes (See narrative above) External Record Review External record reviewed: Outpatient record Prescription Management I considered prescription management with: Antibiotic Discharge Plan Discharge Clinical Impression: Corneal abrasion Patient Disposition: Home, Self-Care Instructions: Corneal Abrasion (ED) Additional Instructions: As discussed, you have what is known as a corneal abrasion to the left eye. I suspect that this is being caused from the lash adhesive/glue. There is a buildup of adhesive on the bottom of the lower lash line that I suspect may be causing this scratching to the surface of the eye. I recommend that you contact your lash serology technician first thing when leaving the department today to discuss measures to remove this adhesive and/or removing the lashes entirely. If this continues to scratch the surface of the eye it made lead to a worsening abrasion, ulceration, deeper infection to the eye, and potentially vision threatening conditions. Being given a prescription for antibiotic eyedrops. Please use these drops as prescribed. Contact the eye doctor; Dr. Manuel whose number has been provided with these discharge instructions. Contact his office first thing Wednesday to arrange for a follow-up visit. Return with any new or worsening symptoms or concerns Prescriptions: New ofloxacin 0.3 % drops 2 drp ophthalmic (eye) QID 5 Days Qty: 5 0RF No Action albuterol sulfate 90 mcg/actuation HFA aerosol inhaler 2 puff inhalation Q4-6H PRN (Reason: shortness of breath or wheezing) Qty: 8.5 0RF Referrals: Alejandrina Miller MD [Primary Care Provider] - Cayetano Manuel [Physician] - Print Language: Jamaican
[2024-06-24] MEDS: Fluorescein Sodium STRIP 1 STRIP EYE-LEFT (09:56)
[2024-06-24] MEDS: Tetracaine HCl/PF 0.5% Oph Sol 4 ML DROPS 1 DROP EYE-LEFT (09:56)
[2024-06-24 10:01] VITALS: BP 117/71; PULSE 92; RESP 16; TEMP 36.7; O2SAT 98
== END 2024-06-24 10:03 | disposition home or self-care (01) ==
PROVIDERS: Emergency Provider Emergency Medicine; PCP Internal Medicine
DX: S05.02XA Injury of conjunctiva and corneal abrasion without foreign body, left eye, initial encounter (principal); W44.8XXA Other foreign body entering into or through a natural orifice, initial encounter; H57.12 Ocular pain, left eye; Y93.9 Activity, unspecified; Y92.9 Unspecified place or not applicable; Y99.9 Unspecified external cause status
CPT/HCPCS: 99282; 99283

== ENCOUNTER 2024-07-04 09:16 | Emergency (ER) | payer MEDICAID, SELFPAY ==
[2024-07-04 10:40] VITALS: BP 132/70; PULSE 87; RESP 18; TEMP 36.3; O2SAT 99; BMI 32.2
--- NOTE | 2024-07-04 13:19 | ED_ITS ---
HPI - Back Pain/Injury General Chief Complaint: Back Pain/Injury Stated Complaint: Lower back pain, leg pain Time Seen by Provider: 07/04/24 13:24 Source: patient and old records reviewed Mode of arrival: ambulatory Limitations: no limitations History of Present Illness ED Provider: TIM XIONG Narrative: 33 yo female healthy here with her menses but then reports 5 days ago atraumatic low back pain but no numbness, weakness, loss of control of bowel or bladder, no thinners and no IVDA. Hurts to move and walk no response to tylenol/flexeril. MD elicited complaint: back pain Onset (ago): day(s) (5) Timing: intermittent Severity: moderate Quality: aching and throbbing Location: lumbar spine Radiation: buttocks Exacerbating factors: movement Relieving factors: immobilization Context: unknown Associated symptoms: denies other symptoms Treatments prior to arrival: acetaminophen and other medications Work related injury: No Related Data Previous Rx's ?Medication ?Instructions ?Recorded albuterol sulfate 90 mcg/actuation 2 puff inhalation Q4-6H PRN 05/29/21 aerosol inhaler shortness of breath or wheezing #8.5 grams ofloxacin 0.3 % eye drops 2 drp ophthalmic (eye) QID 5 days 06/24/24 #5 mL diazepam 5 mg tablet (Valium) 5 mg PO TID PRN muscle spasm #10 07/04/24 tabs lidocaine 5 % topical patch 1 patch topical DAILY #30 ea 07/04/24 prednisone 20 mg tablet 40 mg (2 x 20 mg) PO DAILY 3 days 07/04/24 #6 tabs Allergies Allergy/AdvReac Type Severity Reaction Status Date / Time No Known Allergies Allergy Verified 07/04/24 10:41 [No Known Allergies*] Review of Systems Review of Systems: Constitutional : No Weight loss, No Fever, No Chills, ENT/Mouth : No Hearing loss, No Ear Pain, No Nasal Congestion, No Sinus Pain, No Hoarseness, No sore throat, No Rhinorrhea, No Swallowing Difficulty Cardiovascular : No Chest Pain, No SOB Respiratory : No Cough, No Dyspnea Gastrointestinal : No Nausea, No Vomiting, No Diarrhea, No abdominal Pain, No Hematochezia, No Melena Genitourinary : No Dysuria, No Urinary Frequency, No Hematuria, No Urinary Incontinence, Musculoskeletal : positive back pain Skin : No Skin Lesions, No rash Neuro : No Weakness, No Numbness, No Paresthesias, no loss of bowel or bladder incontinence, no saddle anesthesia all other systems reviewed and are negative PMFSH Past Medical History Attestation statement: The following information was validated with the patient. Source: old records reviewed Medical History No pertinent past medical history Social History Social History (Updated 07/04/24 @ 13:28 by Elizabeth Pearce DO) Alcohol intake: never Patient Tobacco Use Status: Never used Tobacco Physical Exam Vital Signs: Vital Signs: Last Vital Signs Temp 97.3 F 07/04/24 10:40 Pulse 87 07/04/24 10:40 Resp 18 07/04/24 10:40 BP 132/70 07/04/24 10:40 Pulse Ox 99 07/04/24 10:40 O2 Del Method Room Air 07/04/24 10:40 BMI result Body Mass Index 32.2 Appearance: Alert. Oriented X3. No acute distress. Eyes: Pupils equal, round and reactive to light. ENT: Pharynx normal. Neck: Normal inspection. Neck supple. CVS: Normal heart rate and rhythm. Pulses normal. Respiratory: No respiratory distress. Breath sounds normal. Abdomen: Soft and nontender. Back: ttp along both lower lumbar paraspinals Skin: Skin warm and dry. Normal skin color. Normal skin turgor. Extremities: No lower extremity edema. No calf ttp Neuro: Oriented X 3. No motor deficit. No sensory deficit. CN2-12 intact okay ambulating slow to sit in chair, SILT intact Course Course Course Narrative: This is a Rapid Medical Examination (RME) performed by Huan Solis PA-C in triage. Full HPI, ROS, assessment and treatment plan per primary provider in the Main ED. 33 yo female here for eval of bilateral lower back pain x5 days. Pain is stabbing in character and radiates down both lower extremities. Denies numbness, tingling. Denies falls, trauma or injury. Reports pain began at the same time she started her period. no urinary sx. Plan: xr, UA Medical Decision Making Medical Decision Making MDM Narrative: 33 yo female with no sig PMH denies concerns for here with c/o low back pain without b/b incontinence no saddle anesthesia at this time I can reproduce her back pain she has no GI or symptoms and no redflags on exam. Will trial steroids, valium, lidocaine patches. Suspect strain/radiculopathy Differential Diagnosis Differential Diagnoses: The differential diagnosis associated with the presentation includes back strain, no fall to suggest compression fracture no abdominal pain to suggest abd pathology no urinary symptoms Admission/Observation Consideration of admission/observation: Escalation of care including admission/observation considered able to ambulate will start on steroids, lidocaine patches, valium External Record Review External record reviewed: Outpatient record Prescription Management I considered prescription management with: Pain Medication and Other Discharge Plan Discharge Clinical Impression: Lumbar radiculopathy Strain of lumbar region Qualifiers: Encounter type: initial encounter Qualified Code(s): S39.012A - Strain of muscle, fascia and tendon of lower back, initial encounter Patient Disposition: Home, Self-Care Instructions: Low Back Strain (ED), Acute Low Back Pain (ED) Additional Instructions: return for fevers, loss of control of bowel or bladder, abdominal pain, change in urine, fevers or any other concerns. Prescriptions: New diazepam [Valium] 5 mg tablet 5 mg PO TID PRN (Reason: muscle spasm) Qty: 10 0RF Rx Instructions: partial fill is okay prednisone 20 mg tablet 40 mg PO DAILY 3 Days Qty: 6 0RF lidocaine 5 % adhesive patch,medicated 1 patch topical DAILY Qty: 30 0RF Rx Instructions: leave on most painful area for up to 12 hrs No Action albuterol sulfate 90 mcg/actuation HFA aerosol inhaler 2 puff inhalation Q4-6H PRN (Reason: shortness of breath or wheezing) Qty: 8.5 0RF ofloxacin 0.3 % drops 2 drp ophthalmic (eye) QID 5 Days Qty: 5 0RF Stand Alone Forms: Work/School Release Print Language: Setswana
--- OUTSIDE RECORDS SUMMARY | 2024-07-04 13:35 | XMS_ITS | Clinical Summary ---
Author Organization [facility] it Address [address] [place] [address] Care Team Providers Care Brim Shaper Name Role Phone Alejandrina Miller MD Primary Care Provider [phone] Allergies No known active allergies Medications Medication [...] 1 PATCH ONCE A WEEK 02/18/2024 Active vit,[id number] (Prenatabs FA) 29-1 mg tablet Take 1 [...] years and older 03/06/2024 Influenza, Unspecified 02/28/2018 [employer] SARS-CoV-2 COVID-19, mRNA, LNP-S, preservative free 03/06/2024 [...] x2 Alive Son Alive Cardiac surgery at [facility] Autism spectrum Social History Tobacco Use Types [...] EST Office Visit Obstetrics & Gynecology - [address] [address] Jazmine Conti, CNM [address] [place] [address] Health Maintenance Due Date Last Done Comments [...] Screening (12/23/2022) HIV Screening Abstracted Historical Provider [facility] * Hepatitis C Screening (12/23/2022) Hepatitis C Screening Abstracted Historical Provider MD ISAIAH REINA E * Cervical Cancer Screening: HPV (11/12/2020) Cervical Cancer Screening: HPV No Interpretation , Abstracted Historical Provider MD ISAIAH Mujica from Last 3 Months or Most Recently Relevant to Health Maintenance Care Teams Brim Shaper Relationship Specialty Start Date End Date Alejandrina Miller MD [address] [place] [address] [place] [address] PCP - General 12/15/22
[2024-07-04 15:25] VITALS: BP 132/70; PULSE 87; RESP 18; TEMP 36.3; O2SAT 99
== END 2024-07-04 15:26 | disposition home or self-care (01) ==
PROVIDERS: Emergency Provider Emergency Medicine; PCP Internal Medicine
DX: S39.012A Strain of muscle, fascia and tendon of lower back, initial encounter (principal); M54.16 Radiculopathy, lumbar region; X58.XXXA Exposure to other specified factors, initial encounter; Y93.9 Activity, unspecified; Y92.9 Unspecified place or not applicable; Y99.8 Other external cause status
CPT/HCPCS: 99282; 99283

== ENCOUNTER 2024-07-06 14:16 | Emergency (ER) | payer MEDICAID, SELFPAY ==
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
[2024-07-06 15:04] VITALS: BP 126/79; PULSE 100; RESP 18; TEMP 36.7; O2SAT 97; BMI 30.1
--- OUTSIDE RECORDS SUMMARY | 2024-07-06 15:11 | XMS_ITS | Clinical Summary ---
Author Organization [facility] it Address [address] [place] [address] Care Team Providers Care Railroad Design Consultant Name Role Phone Alejandrina Miller MD Primary Care Provider [phone] Allergies No known active allergies Medications Medication [...] 1 PATCH ONCE A WEEK 02/18/2024 Active vit,[id number] (Prenatabs FA) 29-1 mg tablet Take 1 [...] years and older 03/06/2024 Influenza, Unspecified 02/28/2018 [employer] SARS-CoV-2 COVID-19, mRNA, LNP-S, preservative free 03/06/2024 [...] Son Alive Cardiac surgery at [facility] Autism spectrum Social History Tobacco Use Types Packs/Day Years Used Date Smoking Tobacco: Never Smokeless Tobacco: Never Alcohol Use Standard Drinks/Week Comments No 0 (1 standard drink = 0.6 oz pur e alcohol) Sex and Gender Information Value Date Recorded Sex Assigned at Not on file Gender Identity Not on file Sexual Orientation Not on file Job Start Date Occupation Industry Not on file Not on file Not on file Obstetrics History Last Filed [...] EST Office Visit Obstetrics & Gynecology - [address] [id number] Jazmine Conti, CNM [address] [place] [address] Health Maintenance Due Date Last Done Comments [...] Screening (12/23/2022) HIV Screening Abstracted Historical Provider [facility] * Hepatitis C Screening (12/23/2022) Hepatitis C Screening Abstracted Historical Provider [facility] * Cervical Cancer Screening: HPV (11/12/2020) Cervical Cancer Screening: HPV No Interpretation , Abstracted Historical Provider [facility] E from Last 3 Months or Most Recently Relevant to Health Maintenance Care Teams Railroad Design Consultant Relationship Specialty Start Date End Date Alejandrina Miller MD [address] [place] [address] [place] [address] PCP - General 12/15/22
[2024-07-06] MEDS: Acetaminophen 325 MG TABLET 975 MG PO (16:25)
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
[2024-07-06 18:08] VITALS: BP 126/79; PULSE 100; RESP 18; TEMP 36.7; O2SAT 97
== END 2024-07-06 18:08 | disposition home or self-care (01) ==
PROVIDERS: Emergency Provider Emergency Medicine; PCP Internal Medicine
DX: S13.4XXA Sprain of ligaments of cervical spine, initial encounter (principal); S39.012A Strain of muscle, fascia and tendon of lower back, initial encounter; M53.3 Sacrococcygeal disorders, not elsewhere classified; R51.9 Headache, unspecified; M54.2 Cervicalgia; V47.6XXA Car passenger injured in collision with fixed or stationary object in traffic accident, initial encounter; Y93.9 Activity, unspecified; Y92.410 Unspecified street and highway as the place of occurrence of the external cause; Y99.8 Other external cause status
CPT/HCPCS: 70450; 72100; 72125; 72220; 99283; 99284

== ENCOUNTER → 2024-07-06 15:39 | Outpatient (BNV) | payer MEDICAID, SELFPAY | PROVIDERS: Emergency Provider Emergency Medicine; PCP Internal Medicine; Visit Provider Radiology Diagnostic Radiology | DX: M54.2 Cervicalgia (principal); R51.9 Headache, unspecified; M54.50 Low back pain, unspecified | CPT/HCPCS: 70450; 72100; 72125; 72220 ==

== ENCOUNTER 2024-08-31 08:40 | Emergency (ER) | payer MEDICAID, SELFPAY ==
[2024-08-31 08:48] VITALS: BP 117/78; PULSE 103; RESP 18; TEMP 36.5; O2SAT 96; BMI 26.3
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
--- OUTSIDE RECORDS SUMMARY | 2024-08-31 09:14 | XMS_ITS | Clinical Summary ---
Author Organization [facility] Address [address] [place] [address] Phone Care Team Providers Care Rotating Equipment Specialist Name Role Phone Alejandrina Miller MD Primary Care Provider [phone] Allergies No known active allergies Medications acetaminophen (TYLENOL) 500 mg tablet TAKE 2 TABLETS BY MOUTH EVERY 6 HOURS NEEDED FOR PAIN FOR UP TO 30 DAYS. 09/23/19 24 Active metoclopramide (REGLAN) 10 mg tablet Take 1 Tablet by mouth 4 times daily as needed (nausea). 05/20/20 23 Active amitriptyline (ELAVIL) 10 mg tablet Take 2 tablets (20 mg total) by mouth. at bedtime 11/06/19 24 Active cyclobenzaprin e (FLEXERIL) 5 mg tablet Take 1 tablet (5 mg total) by mouth 3 (three) times a day if needed for muscle spasms. 07/06/19 25 Active diazePAM (VALIUM) 5 mg tablet TAKE 1 TABLET ORALLY 3 TIMES A DAY NEEDED FOR MUSCLE SPASM PARTIAL FILL IS OKAY 07/04/19 25 Active lidocaine (LIDODERM) 5 % patch APPLY 1 PATCH TOPICALLY DAILY LEAVE ON MOST PAINFUL AREA FOR UP TO 12 HRS 07/04/19 25 Active norelgestromin -ethinyl estradiol (ORTHO EVRA) 150-35 mcg/24 hr Apply 1 patch each week for 3 weeks, then remove for 1 week. 3 patch 12 07/11/19 25 Active meloxicam (MOBIC) 7.5 mg tablet Take 1 tablet (7.5 mg total) by mouth 1 (one) time each day. 30 each 2 07/11/19 25 025 Active M- Plus 27 mg iron- 1 mg tablet Take 1 tablet by mouth 1 (one) time each day. 07/13/19 25 Active vit no.180-iron-fo lic ( Plus Vitamin-Minera l) 27 mg iron- 1 mg tablet Take 1 tablet by mouth 1 (one) time each day. 90 tablet 3 08/09/19 25 026 Active famotidine (PEPCID) 20 mg tablet Take 1 tablet (20 mg total) by mouth 2 (two) times a day. 180 tablet 08/09/19 25 Active famotidine (PEPCID) 20 mg tablet TAKE 1 TABLET BY MOUTH TWICE A DAY 08/20/19 24 025 Discontinued vit no.180-iron-fo lic ( Plus Vitamin-Minera l) 27 mg iron- 1 mg tablet Take 1 tablet by mouth 1 (one) time each day. 90 tablet 3 07/13/19 25 025 Discontinued(Re order) famotidine (PEPCID) 20 mg tablet TAKE 1 TABLET BY MOUTH TWICE A DAY 180 tablet 08/05/19 25 025 Discontinued(Re order) Active Problems Problem Noted Date Diagnosed Date Pap smear of cervix with ASCUS, cannot exclude H GSIL 07/18/2024 Overview (07/18/2024): 07/2024 PAP LSIL, ASCUS- , neg HPV Plan: Colpo Abdominal wall pain in periumbilical region 03/31 [...] Call if worsening or other new concerns. Resolved Problems Problem Noted Date Diagnosed Date Resolved Date GBS (group B Streptococcus c arrier), +RV culture, currently 06/16/2023 07/18/2024 Overview (05/02/2024): treat in labor Encounters Date Type Department Care Team Description 08/21/2024 11:30 AM EDT Procedure visit Obstetrics and [facility] [address] [place] [address] Shelby Adams MD Moderate dysplasia of cervix (NATE II) (Primary Dx); test negative 08/07/[address] [facility] [address] [place] [address] Socorro Stearns MA Results 07/31/2024 Telephone [address] [phone] Kathie Jang CNM Results 07/24/2024 1:15 PM EST Procedure visit [address] [phone] Kathie Jang CNM LGSIL of cervix of undetermined significance (Primary Dx); test negative 07/13/2024 Telephone [address] [phone] Jazmine Conti CNM Results 07/11/2024 2:30 PM EST Office Visit [address] [phone] Jazmine Conti CNM Encounter for well woman exam with routine gynecological exam (Primary Dx); Screening breast examination; Screening for cervical cancer; Dysmenorrhea; Uses Mohawk as primary spoken language from Last 3 Months Immunizations Name Administration Dates Next Due COVID-19 (Pfizer/Comirnaty) 12yo and older 03/06/2024 Influenza Quadravalent, MDCK , 0.5ml, preservative free (Flucelvax) 6mo and older 03/22/2023,02/22/2019,03/08/2017 Influenza Quadrivalent, 0.5m l, preservative free (Fluarix; FluLaval; Fluzone) ages 6mo and older (Afluria) 3yo and older 04/13/2022,06/15/2021,03/14/2018,2015 Influenza trivalent, 0.5mL, preservative free (Fluarix; FluLaval; Fluzone) ages 6mo and older (Afluria) 3 years and older 03/06/2024 Influenza trivalent, MDCK, 0 .5mL, preservative free (Flucelvax) 6mo and older 03/06/2024 Influenza, Unspecified 02/28/2018 [employer] SARS-CoV-2 COVID-19, mRNA, LNP-S, preservative free 03/06/2024,06/15/2021 Td Tetanus diptheria, preser vative free (Tenivac) 7yo and older 12/18/2014 Tdap Tetanus diptheria acell ular pertussis (Boostrix; [...] x2 Alive Son Alive Cardiac surgery at [facility] Autism spectrum Social History Tobacco Use Types Packs/Day Years Used Date Smoking Tobacco: Never Smokeless Tobacco: Never Alcohol Use Standard Drinks/Week Comments No 0 (1 standard drink = 0.6 oz pur e alcohol) Comments No Sex and Gender Information Value Date Recorded Sex Assigned at Not on file Legal Sex Female 5:44 AM EST Gender Identity Not on file Sexual Orientation Not on file Obstetrics History Para Term AB IAB SAB Ectopic Multiple Livin g Live Births 4 2 2 2 2 2 2 Date Outcome GA Total Labor Labor/2nd/3rd Weight Sex Type Anes PTL Puja A1 A5 Name Clin SAB 2018 Term 40w 3d 3374 g (119 oz) M Vag-S pont Epidur al Livin g 8 9 Diegowilliam Nieto CNM Complications:Carrier of abdelrahman up B Streptococcus,Oligohydramnios Delivery Location:[facility] Comments:induction SAB 2023 Term 38w 2d 3487 g (123 oz) M Vag-S pont Liana anglin N Dianelys g 8 9 Kamilah dejesus MD Complications:Carrier of abdelrahman up B Streptococcus Delivery Location[facility] Comments:gestational h tn on admission Last Filed Vital Signs Vital Sign Reading Time Taken Comments Blood Pressure 110/72 08/21/2024 11:43 AM EDT Pulse 86 08/21/2024 11:43 AM EDT Temperature - - Respiratory Rate - - Oxygen Saturation - - Inhaled Oxygen Concentration - - Weight 81.9 kg (180 lb 9.6 oz) 08/21/2024 11:43 AM EDT Height 160 cm (5' 3 ) 08/21/2024 11:43 AM EDT Body Mass Index 31.99 08/21/2024 11:43 AM EDT Plan of Treatment Health Maintenance Due Date Last Done Comments Hepatitis B Vaccines (1 of 3 - 19+ 3-dose series) 09/21/2010 Depression Screening 05/03/2022 Social Influencers of Health Screening 05/03/2022 COVID-19 Vaccine ( season) 2024 03/06/2024, 03/06/2024, 04/13/2022, Additional history exists Cervical Cancer Screening: HPV 07/11/2029 07/11/2024, 07/11/2024, 11/12/2020 DTaP,Tdap,and Td Vaccines (4 - Td or Tdap) 04/19/2033 04/19/2023, 08/02/2018, 12/18/2014 HIV Screening Completed 12/23/2022 Hepatitis C Screening Completed 12/23/2022 Influenza Vaccine Completed 03/06/2024, , 03/22/2023, Additional history exists HIB Vaccines Aged Out No longer eligi [...] patient's age to complete this topic Meningococcal B Vacine Aged Out No lo nger eligible based on patient's age to complete this topic Pneumococcal Vaccine: Pediatrics (0 to 5 Years) and At-Risk Patients (6 to 64 Years) Aged Out No longer eligible based on patient's age to complete this topic RSV Immunization Patients Under 20 months Aged Out No longer eligible based on patient's age to complete this topic Varicella Vaccines Aged Out No longer eligible based on patient's age to complete this topic Procedures Procedure Name Priority Date/Time Associated Diagnosis Comments POC , URINE DIAGNOSTIC Routine 08/22/2024 11:13 AM EDT test negative TISSUE EXAM Routine 08/21/2024 12:28 PM EDT Moderate dysplasia of cervix (NATE II) POC , URINE DIAGNOSTIC Routine 08/21/2024 11:46 AM EDT test negative TISSUE EXAM Routine 07/24/2024 2:47 PM EST LGSIL of cervix of undetermined significance POC , URINE DIAGNOSTIC Routine 07/24/2024 1:26 PM EST test negative AR COLPOSCOPY CERVIX INCL UPPER/ADJ VAGINA W BX CERVIX/ENDOCERV CURETTAGE Routine 07/24/2024 1:18 PM EST LGSIL of cervix of undetermined significance PAP SMEAR Routine 07/11/2024 2:41 PM EST Encounter for well woman exam with routine gynecological exam Screening for cervical cancer HPV GENOTYPE Routine 07/11/2024 2:41 PM EST Encounter for well woman exam with routine gynecological exam Screening for cervical cancer HPV WITH REFLEX GENOTYPE Routine 07/11/2024 2:41 PM EST Encounter for well woman exam with routine gynecological exam Screening for cervical cancer HM HEPATITIS C SCREENING Routine 12/23/2022 HIV SCREENING Routine 12/23/2022 from Last 3 Months or Most Recently Relevant to Health Maintenance Results * (ABNORMAL) POC , urine manually resulted (08/22/2024 11:13 AM EDT) Only the most recent of3 resultswithin the time period is included. HCG, Ur POC Negative Negative POC hCG Int QC Pass? Yes Yes Urine Urine specimen obtained by clean catch procedure / Unknown 08/22/2024 11:13 AM EDT Shelby Adams MD POINT OF CARE TEST ENTER/ED IT ORDERABLES Final Result * Tissue exam (08/21/2024 12:28 PM EDT) Only the most recent of2 resultswithin the time period is included. Final Diagnosis Cervix, LEEP cone biopsy: High-grade squamous intraepithelial lesion (HSIL/CIN3) Margins uninvolved Acute and chronic endocervicitis 08/23/2024 11:21 AM EDT [facility] Clinical Information Moderate dysplasia of cervix (NATE II) (N87.1) 08/23/2024 11:21 AM EDT [facility] Gross Description A. Cervix, leep biopsy: Labeled cervix . Received in red, blood-stained formalin, is a previously incised, unoriented, 1.9 x 1.8 x 1.0 cm rubbery, annular portion of cervical tissue with moderate attached blood-streaks mucoid material and blood clot. The ectocervical mucosa is white to centrally red and hemorrhagic. The ectocervical borders are inked blue, endocervical green and remaining cauterized margins are inked black. The specimen is serially section sequentially. The cut surfaces are white to red and rubbery. The specimen is submitted in entirety in six cassettes, x 2 (1-attached blood-streaks mucoid material, multiple pieces, 2-6 cervical tissue, in entirety, submitted sequentially, two pieces each). TS 08/23/2024 11:21 AM EDT [facility] Disclaimer Unless otherwise specified, all tissue is 10% NB formalin fixed and paraffin embedded. 08/23/2024 11:21 AM EDT [facility] Tissue Cervix uteri structure / Unknown Non-blood Collection / Unknown 08/21/2024 12:28 PM EDT 08/21/2024 12:28 PM EDT us Shelby Adams MD LAB PATHOLOGY ORDERABLES Fi nal Result [facility] [address] [place] [address], * AR COLPOSCOPY CERVIX INCL UPPER/ADJ VAGINA W BX CERVIX/ENDOCERV CURETTAGE (07/24/2024 1:18 PM EST) Narrative Kathie Jang CNM - 07/24/2024 1:18 PM EST Kathie Jang CNM ? 07/24/2024 ??4:13 PM Colposcopy with cervical biopsy and ECC ?? Indication: ??LSIL and POS HPV 18 Date/Time: 07/24/2024 1:18 PM Performed by: Kathie Jang CNM Authorized by: Kathie Jang CNM ?? Informed Consent: ??Relevant images/test results available and reviewed: yes ?Health status cleared: ??yes ??Procedure/treatment, purpose, treatment alternatives, risks/potential complications and benefits explained: yes ?Patient questions answered: yes ?Patient agrees, verbalizes understanding, and wants to proceed: yes ?Consent given by: ??Patient ??Informed consent discussion completed by Physician/BETSY with patient: ?? Written; patient signed and dated; copy to patient ??Pre-procedure timeout performed: yes ?? Pre-procedure: ??Negative urine test: ??Yes ??Prepped with: acetic acid ?? Procedure: ??Under satisfactory analgesia the patient was prepped and draped in the dorsal lithotomy position: yes ?[place] speculum was placed in the vagina: yes ?Cervical biopsy performed with a cervical biopsy punch: yes ?Endocervix was curetted using a Kevorkian curette: yes ?Endometrial biopsy performed: no ?Hemostasis achieved: yes ?Hemostasis achieved with: ??Applied pressure ??Specimen to pathology: yes ?? Post-procedure: ??Findings: transition zone was seen in entirety ?Impression: normal appearance ?Colposcopy satisfactory: yes ?Patient tolerance of procedure: ??Patient tolerated the procedure well with no immediate complications Kathie Jang CNM IN CLINIC/BEDSIDE ORDERABLES Fi nal Result * HPV genotype (07/11/2024 2:41 PM EST) HPV Type 16 Negative Negative LAB MICROBIOLOGY METHOD 07/17/2024 2:03 PM EST [facility] HPV Type 18/45 Negative Negative LAB MICROBIOLOGY METHOD 07/17/2024 2:03 PM EST [facility] HPV Type 16,18, and others Valid LAB MICROBIOLOGY METHOD 07/17/2024 2:03 PM EST [facility] Brushing/Spatula Cervix uteri structure / Unknown 07/11/2024 2:41 PM EST 07/12/2024 5:57 AM EST Jazmine Conti CNM LAB MOLECULAR DIAGNOSTICS ORD ERABLES Final Result [facility] [address] [place] [address], * (ABNORMAL) HPV with reflex genotype (07/11/2024 2:41 PM EST) HPV Positive( A) Negative LAB MICROBIOLOGY METHOD 07/13/2024 10:55 AM EST [facility] Brushing/Spatula Cervix uteri structure / Unknown 07/11/2024 2:41 PM EST 07/12/2024 5:57 AM EST us Jazmine Cnoti [facility] MOLECULAR DIAGNOSTICS ORD ERABLES Final Result [facility] [address] [place] [address], * (ABNORMAL) Pap smear (07/11/2024 2:41 PM EST) Interpretation Low grade squamous intraepithelial lesion Atypical squamous cells of undetermined significance, cannot exclude high grade(A) 07/17/2024 4:37 PM EST [facility] General Categorization Epithelial cell abnormality, see interpretation 07/17/2024 4:37 PM EST [facility] LMP 07/03/2024 07/17/2024 4:37 PM [facility] Specimen Adequacy Satisfactory for evaluation, endocervical/jameson sformation zone component present 07/17/2024 4:37 PM [facility] Pap Methodology Liquid Based Pap Test 07/17/2024 4:37 PM [facility] Disclaimer The Pap test is a screening test which carries an inherent false negative rate. These test results should be correlated with the patient's clinical findings and history. This Pap test was processed using an automated screening system. Technical cytopathology services provided by [facility], at [address] [place] [id number] (CLIA # [id number]/Ayleen Aldana MD, [employer].) 07/17/2024 4:37 PM [facility] Console Pap Interpretation Reported 07/17/2024 4:37 PM [facility] Brushing/Spatula Cervix uteri structure / Unknown 07/11/2024 2:41 PM EST 07/12/2024 5:56 AM EST Jazmine MENDEZ LAB CYTOLOGY ORDERABLES Final Result [facility] [address] [place] [address], * HIV Screening (12/23/2022) HIV Screening Abstracted Historical Provider HEALTH MAINTENANCE Final Result * Hepatitis C Screening (12/23/2022) Hepatitis C Screening Abstracted Historical Provider HEALTH MAINTENANCE Final Result from Last 3 Months or Most Recently Relevant to Health Maintenance Insurance MEDICAID - [place] Care Teams Rotating Equipment Specialist Relationship Specialty Start Date End Date Alejandrina Miller MD [address] [place] [address] [place] [id number] PCP - General 12/15/22
--- OUTSIDE RECORDS SUMMARY | 2024-08-31 09:14 | XMS_ITS | Encounter Summary ---
Author Organization [facility] Address [address] [place] [address] Care Team Providers Care Entry Level Sales Consultant Name Role Phone Alejandrina Miller MD Primary Care Provider [phone] Reason for Visit * Reason Onset Date Comments Results 07/31/2024 Encounter Details Date Type Department Care Team (Late st Contact Info) Description 07/31/2024 Telephone Obstetrics & Gynecology - [facility] [address] [place] [address] Kathie Jang CNM [address] [place] [address] Results Social History Tobacco Use Types Packs/Day Years Used Date Smoking Tobacco: Never Smokeless Tobacco: Never Alcohol Use Standard Drinks/Week Comments No 0 (1 standard drink = 0.6 oz pur e alcohol) Comments No Sex and Gender Information Value Date Recorded Sex Assigned at Not on file Legal Sex Female 5:44 AM EST Gender Identity Not on file Sexual Orientation Not on file documented as of this encounter Progress Notes * Aria Salazar - 07/31/2024 3:10 PM EST Inform patient: ANY URGENT OR ABNORMAL RESULTS WIILL RESULT IN A CALL BACK TO THE PATIENT FERNY. Type of test: :colposcopy Date test was performed: 07/24/24 Where was the test performed: [address] [place] [id number] Who ordered this test?: Kathie Jang CNM Is the doctor here today?: No Can the message wait until the doctor returns?: No documented in this encounter Plan of Treatment Not on file documented as of this encounter Visit Diagnoses Not on filedocumented in this encounter Care Teams Entry Level Sales Consultant Relationship Specialty Start Date End Date Alejandrina Miller MD [address] [place] [address] [place] [address] PCP - General 12/15/22 documented as of this encounter
--- NOTE | 2024-08-31 09:50 | ED_ITS ---
HPI - Eye Problem General Chief complaint: Eye Problems Stated complaint: r eye issue Time Seen by Provider: 08/31/24 09:49 Source: patient, RN notes reviewed and old records reviewed Mode of arrival: ambulatory Limitations: no limitations History of Present Illness ED Provider: Sudha HPI Narrative: Patient is a 33-year-old female presenting with complaint of right eye redness, swelling and itching since last night. Denies any concern for foreign body. Denies pain or vision changes. Does not wear contact lenses. Clear watery drainage. chief complaint: eye redness Onset (ago): day(s) Location: right eye Eye Symptoms: redness and itching Related Data Previous Rx's ?Medication ?Instructions ?Recorded albuterol sulfate 90 mcg/actuation 2 puff inhalation Q4-6H PRN 05/29/21 aerosol inhaler shortness of breath or wheezing #8.5 grams ofloxacin 0.3 % eye drops 2 drp ophthalmic (eye) QID 5 days 06/24/24 #5 mL diazepam 5 mg tablet (Valium) 5 mg PO TID PRN muscle spasm #10 07/04/24 tabs lidocaine 5 % topical patch 1 patch topical DAILY #30 ea 07/04/24 prednisone 20 mg tablet 40 mg (2 x 20 mg) PO DAILY 3 days 07/04/24 #6 tabs acetaminophen 500 mg tablet 1,000 mg (2 x 500 mg) PO Q6H PRN 07/06/24 (Tylenol Extra Strength) pain #30 tabs cyclobenzaprine 5 mg tablet 5 mg PO TID PRN muscle spasm #14 07/06/24 tabs ibuprofen 600 mg tablet 600 mg PO Q6H PRN pain #30 tabs 07/06/24 lidocaine 4 % topical patch 1 patch topical DAILY PRN pain #15 07/06/24 (AsperFlex (lidocaine)) ea erythromycin 5 mg/gram (0.5 %) eye 0.5 inch ophthalmic (eye) BID 5 08/31/24 ointment days #3.5 grams Allergies Allergy/AdvReac Type Severity Reaction Status Date / Time No Known Allergies Allergy Verified 08/31/24 08:50 [No Known Allergies*] Review of Systems Review of Systems: As per HPI. Yes all other systems are reviewed and are negative Constitutional: Constitutional: Reports as per HPI [facility] Past Medical History Medical History No pertinent past medical history Social History Social History (Updated 07/04/24 @ 13:28 by Elizabeth Pearce DO) Alcohol intake: never Patient Tobacco Use Status: Never used Tobacco Advance Directives: No Advance Directives Information Provided: No Do you have a plan to hurt others: No Plan Physical Exam Vital Signs: Vital Signs: Last Vital Signs Temp 97.7 F 08/31/24 08:48 Pulse 103 H 08/31/24 08:48 Resp 18 08/31/24 08:48 BP 117/78 08/31/24 08:48 Pulse Ox 96 08/31/24 08:48 O2 Del Method Room Air 08/31/24 08:48 BMI result Body Mass Index 26.3 Vital signs have been reviewed and appear to be correct. Blood pressure normal. Heart rate normal. Respiratory rate normal. Temperature normal. Oxygen saturation normal. Const: General: cooperative, healthy appearing and no acute distress Orientation/consciousness: oriented to person, oriented to place, oriented to time and patient oriented x3 Limitations: no limitations HEENT: Head: Yes normocephalic and Yes atraumatic Ears: external ears normal General nose exam: Normal external nose present Face and sinus: Yes face symmetric Mouth: oropharynx normal and moist mucous membranes Throat: Yes uvula midline Eyes: Visual Mirza: normal visual mirza by confrontation Alignment and Position: alignment normal and position normal Eyelids: Yes eyelid abnormality (erythema, swelling to right upper eyelid) Conjunctivae: conjunctival abnormal right conjunctival injection diffuse and discharge (watery) Corneas: corneas normal and fluorescein used Pupils: Equal, round and reactive pupils present EOM: EOMs intact bilaterally Neck: Neck: Yes normal visual inspection and Yes supple Resp: Effort & Inspection: normal respiratory effort and able to speak in complete sentences Auscultation: clear to auscultation bilaterally Cardio: Rate: regular rate Rhythm: regular rhythm Heart sounds: S1 normal heart sound present and S2 normal heart sound present GI: Palpation (GI): Soft to palpation and nontender Auscultation: normoactive bowel sounds : General: Yes no CVA tenderness Back/Spine/Pelvis: Back: no CVA tenderness Skin: General skin exam: elasticity normal and turgor normal Neuro: General: oriented to person, oriented to place, oriented to time, patient oriented x3, moves all extremities, no focal motor deficits and CN's II- XI intact bilaterally Cranial nerves: Yes Equal, round and reactive pupils present Cognition (Neuro): normal cognition Extrem: General: Yes full ROM, Yes no pedal edema and Yes no calf tenderness Psych: Mental Status: mental status grossly normal Affect: normal affect Thought process: Normal thought process present Medications Administered Discontinued Medications Generic Name Dose Route Start Last Admin Trade Name Freq PRN Reason Stop Dose Admin Fluorescein Sodium 1 strip 08/31/24 10:09 08/31/24 10:16 Fluorescein Sodium Strip EYE-RIGHT 08/31/24 10:10 1 strip ONCE ONE Administration Medical Decision Making Medical Decision Making [facility] Narrative: Patient is a 33-year-old female presenting with complaint of right eye redness, swelling and itching since last night. On exam patient is awake, A+Ox3, VS WNL, afebrile, normal neurological exam without focal deficits, physical exam findings as above. Given reported symptoms and physical exam findings, initial differential includes but is not limited to allergic versus bacterial versus viral conjunctivitis, corneal abrasion. No evidence of abrasion on Frederick lamp exam. will treat with erythromycin ointment. Return precautions discussed. Discussed good hand hygiene prior to and after touching eye. Follow up with PCP as needed. Patient verbalized understanding of and agreement with plan. Differential Diagnosis Differential Diagnoses: The differential diagnosis associated with the presentation includes as per [facility] External Record Review External record reviewed: Inpatient record, Office record and Outpatient record Prescription Management I considered prescription management with: Antibiotic Discharge Plan Discharge Clinical Impression: Conjunctivitis Patient Disposition: Home, Self-Care Instructions: Conjunctivitis (ED) Additional Instructions: You were evaluated in the emergency department today for eye redness, itching, and discharge. You are being treated for conjunctivitis with antibiotic ointment. Please complete the full course as prescribed. Be sure to wash hands thoroughly before and after touching your eyes. You should follow up with your primary care provider or [facility] this week. Return to the emergency department if you develop changes in vision, increasing pain, fever 100.4F or greater, or any other concerning symptoms. Prescriptions: New erythromycin 5 mg/gram (0.5 %) ointment 0.5 inch ophthalmic (eye) BID 5 Days Qty: 3.5 0RF No Action albuterol sulfate 90 mcg/actuation HFA aerosol inhaler 2 puff inhalation Q4-6H PRN (Reason: shortness of breath or wheezing) Qty: 8.5 0RF diazepam [Valium] 5 mg tablet 5 mg PO TID PRN (Reason: muscle spasm) Qty: 10 0RF Rx Instructions: partial fill is okay prednisone 20 mg tablet 40 mg PO DAILY 3 Days Qty: 6 0RF lidocaine 5 % adhesive patch,medicated 1 patch topical DAILY Qty: 30 0RF Rx Instructions: leave on most painful area for up to 12 hrs ofloxacin 0.3 % drops 2 drp ophthalmic (eye) QID 5 Days Qty: 5 0RF ibuprofen 600 mg tablet 600 mg PO Q6H PRN (Reason: pain) Qty: 30 0RF acetaminophen [Tylenol Extra Strength] 500 mg tablet 1,000 mg PO Q6H PRN (Reason: pain) Qty: 30 0RF cyclobenzaprine 5 mg tablet 5 mg PO TID PRN (Reason: muscle spasm) Qty: 14 0RF lidocaine [AsperFlex (lidocaine)] 4 % adhesive patch,medicated 1 patch topical DAILY PRN (Reason: pain) Qty: 15 0RF Print Language: Croatian
[2024-08-31] MEDS: Fluorescein Sodium STRIP 1 STRIP EYE-RIGHT (10:16)
[2024-08-31 10:28] VITALS: BP 122/84; PULSE 103; RESP 18; TEMP 36.6; O2SAT 98
== END 2024-08-31 10:29 | disposition home or self-care (01) ==
PROVIDERS: Emergency Provider Emergency Medicine; PCP Internal Medicine
DX: H10.9 Unspecified conjunctivitis (principal); H57.11 Ocular pain, right eye
CPT/HCPCS: 99283; 99284

== ENCOUNTER 2025-02-12 08:39 | Emergency (ER) | payer MEDICAID, SELFPAY ==
[2025-02-12 09:20] VITALS: BP 116/65; PULSE 89; RESP 18; TEMP 36.4; O2SAT 100; BMI 29.0
--- NOTE | 2025-02-12 12:40 | ED_ITS ---
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 Mode of arrival: ambulatory Limitations: language barrier History of Present Illness ED Provider: Related Data Previous Rx's ?Medication ?Instructions ?Recorded albuterol sulfate 90 mcg/actuation 2 puff inhalation Q 4-6H PRN 05/29/21 aerosol inhaler shortness of breath or wheez ing #8.5 grams ofloxacin 0.3 % eye drops 2 drp ophthalmic (eye) QID 5 days 06/24/24 #5 mL diazepam 5 mg tablet (Valium) 5 mg PO TID PRN muscle s pasm #10 07/04/24 tabs lidocaine 5 % topical patch 1 patch topical DAILY #30 ea 07/04/24 prednisone 20 mg tablet 40 mg (2 x 20 mg) PO DAILY 3 days 07/04/24 #6 tabs acetaminophen 500 mg tablet 1,000 mg (2 x 500 mg) PO Q 6H PRN 07/06/24 (Tylenol Extra Strength) pain #30 tabs cyclobenzaprine 5 mg tablet 5 mg PO TID PRN muscle spa sm #14 07/06/24 tabs ibuprofen 600 mg tablet 600 mg PO Q6H PRN pain #30 t abs 07/06/24 lidocaine 4 % topical patch 1 patch topical DAILY PRN pain #15 07/06/24 (AsperFlex (lidocaine)) ea erythromycin 5 mg/gram (0.5 %) eye 0.5 inch ophthalmic (eye) BID 5 08/31/24 ointment days #3.5 grams cyclobenzaprine 5 mg tablet 5 mg PO TID PRN muscle spa sm 2 02/12/25 days #7 tabs naproxen 500 mg tablet 500 mg PO BID 5 days #10 tab s 02/12/25 Allergies Allergy/AdvReac Type Severity Reaction Status Date / Time No Known Allergies (No Known Allergy Verified 02/12/25 09:23 Allergies*) Review of Systems Constitutional: Constitutional: Reports as per [facility] Past Medical History Medical History No pertinent past medical history Social History Social History (Updated 07/04/24 @ 13:28 by Elizabeth Pearce DO) Alcohol intake: never Patient Tobacco Use Status: Never used Tobacco Advance Directives: No Advance Directives Information Provided: No Physical Exam ED Vital Signs: Vital Signs - 24 hr 02/12/25 09:20 Temperature 97.6 F Pulse Rate 89 Respiratory Rate 18 Blood Pressure 116/65 Pulse Oximetry 100 Oxygen Delivery Method Room Air BMI result Body Mass Index 29.0 Const Other: * Gen: ?Overall well-appearing patient * HEENT: no evidence for ertythema of TMs, no tenderness along the mastoid * Neck: Tenderness along bilateral trapezii * CV: RRR, no obvious murmurs appreciated * Resp: ?No wheezing rales rhonchi no stridor moving air well, radial ulnar pulses +2 bilaterally * Abd: ?Bowel sounds are present, no tenderness no rebound no rigidity * MSK: FROM, strength 5/5 all extremities, musculoskeletal tenderness along upper back * Skin: Warm, dry, intact, * Neuro: ?Alert and oriented x3, moving upper and lower extremities symm etrically, no obvious facial asymmetry noted Medical Decision Making Medical Decision Making MDM Narrative: Patient is presenting with atraumatic neck pain shoulder pain, on examination lots of trigger points and muscle spasm, has torticollis without any masses of the neck, she was also concerned about some irritation but she does have evidence of some external irritation due to over cleaning with a Q-tip but no evidence for infectious etiology, no evidence for neurovascular compromise on exam Differential Diagnosis Differential Diagnoses: The differential diagnosis associated with the presentation includes (Acute otitis media, mastoiditis, torticollis, otitis externa, trauma) Tests considered The following testing was considered but not selected: CT cervical spine CBC CMP Prescription Management I considered prescription management with: Pain Medication Discharge Plan Discharge Clinical Impression: Acute torticollis Additional Instructions: Please continue with Naprosyn 500 mg twice a day starting tomorrow for today I gave you enough anti-inflammatories, and you can continue taking muscle relaxants, warm compresses gentle [id number] follow up with the PCP any other issues or concerns come back to the ER Prescriptions: New cyclobenzaprine 5 mg tablet 5 mg PO TID PRN (Reason: muscle spasm) 2 Days Qty: 7 0RF naproxen 500 mg tablet 500 mg PO BID 5 Days Qty: 10 0RF No Action albuterol sulfate 90 mcg/actuation HFA aerosol inhaler 2 puff inhalation Q4-6H PRN (Reason: shortness of breath or wheezing) Qty: 8.5 0RF diazepam [Valium] 5 mg tablet 5 mg PO TID PRN (Reason: muscle spasm) Qty: 10 0RF Rx Instructions: partial fill is okay prednisone 20 mg tablet 40 mg PO DAILY 3 Days Qty: 6 0RF lidocaine 5 % adhesive patch,medicated 1 patch topical DAILY Qty: 30 0RF Rx Instructions: leave on most painful area for up to 12 hrs ofloxacin 0.3 % drops 2 drp ophthalmic (eye) QID 5 Days Qty: 5 0RF ibuprofen 600 mg tablet 600 mg PO Q6H PRN (Reason: pain) Qty: 30 0RF acetaminophen [Tylenol Extra Strength] 500 mg tablet 1,000 mg PO Q6H PRN (Reason: pain) Qty: 30 0RF cyclobenzaprine 5 mg tablet 5 mg PO TID PRN (Reason: muscle spasm) Qty: 14 0RF lidocaine [AsperFlex (lidocaine)] 4 % adhesive patch,medicated 1 patch topical DAILY PRN (Reason: pain) Qty: 15 0RF erythromycin 5 mg/gram (0.5 %) ointment 0.5 inch ophthalmic (eye) BID 5 Days Qty: 3.5 0RF Referrals: Alejandrina Miller MD [Primary Care Provider, Internal Medicine] - 10 days Clinical Impression: Acute torticollis Print Language: [place] Timorese
[2025-02-12 14:20] VITALS: BP 108/78; PULSE 82; RESP 18; TEMP -17.7; TEMP 0; O2SAT 99
--- OUTSIDE RECORDS SUMMARY | 2025-02-12 16:51 | XMS_ITS | Clinical Summary ---
Author Organization [facility] Address [address] [place] [address] Phone Care Team Providers Care Fur Repairer Name Role Phone Alejandrina Miller MD Primary Care Provider [phone] Allergies No known active allergies Medications acetaminophen (TYLENOL) 500 mg tablet TAKE 2 TABLETS BY MOUTH EVERY 6 HOURS NEEDED FOR PAIN FOR UP TO 30 DAYS. 4 Active metoclopramide (REGLAN) 10 mg tablet Take 1 Tablet by mouth 4 times daily as needed (nausea). 3 Active amitriptyline (ELAVIL) 10 mg tablet Take 2 tablets (20 mg total) by mouth. at bedtime 4 Active cyclobenzaprine (FLEXERIL) 5 mg tablet Take 1 tablet (5 mg total) by mouth 3 (three) times a day if needed for muscle spasms. 5 Active diazePAM (VALIUM) 5 mg tablet TAKE 1 TABLET ORALLY 3 TIMES A DAY NEEDED FOR MUSCLE SPASM PARTIAL FILL IS OKAY 5 Active lidocaine (LIDODERM) 5 % patch APPLY 1 PATCH TOPICALLY DAILY LEAVE ON MOST PAINFUL AREA FOR UP TO 12 HRS 5 Active norelgestromin- ethinyl estradiol (ORTHO EVRA) 150-35 mcg/24 hr Apply 1 patch each week for 3 weeks, then remove for 1 week. 3 patch 12 5 Active M-Deepika Plus 27 mg iron- 1 mg tablet Take 1 tablet by mouth 1 (one) time each day. 5 Active famotidine (PEPCID) 20 mg tablet Take 1 tablet (20 mg total) by mouth 2 (two) times a day. 180 tablet 5 Active meloxicam (MOBIC) 7.5 mg tablet TAKE 1 TABLET BY MOUTH 1 TIME EACH DAY. 30 tablet 2 5 Active vit no.[id number] ic ( Plus Vitamin-Mineral ) 27 mg iron- 1 mg tablet Take 1 tablet by mouth 1 (one) time each day. 90 tablet 3 5 12/14/19 26 Active Active Problems Problem Noted Date Diagnosed [...] 06/16/2023 07/18/2024 Overview (05/02/2024): treat in labor Immunizations Name Administration Dates Next Due COVID-19 [...] 6mo and older 03/06/2024 Influenza, Unspecified 02/28/2018 [employer] SARS-CoV-2 COVID-19, mRNA, LNP-S, preservative free 03/06/2024,06/15/2021 [...] x2 Alive Son Alive Cardiac surgery at [facility] Autism spectrum Social History Tobacco Use Types [...] Sexual Orientation Not on file Obstetrics History * This document contains information received from the source organization and may not represent a complete record from that organization. 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 Delivery Location:[facility] Comments:gestational h tn on admission Last [...] 08/21/2024 11:43 AM EDT Plan of Treatment Upcoming Encounters Date Type Department Care Team (Late st Contact Info) Description 02/22/2025 1:30 PM EDT Procedure visit [facility] [address], [place] [phone] Emily Kirkpatrick DO [address] [place], [place] 02/22/2025 1:30 PM EDT Procedure visit Obst[facility]s [facility] [address] [place] [address] Health Maintenance Due Date Last Done Comments Hepatitis B Vaccines (1 of 3 - 19+ 3-dose series) 09/21/2010 Social Influencers of Health Screening 05/03/2022 Depression Screening 05/31/2024 COVID-19 Vaccine ( season) 2025 03/06/2024, 03/06/2024, 04/13/2022, Additional history exists Influenza Vaccine (#1) 2025 , 03/06/2024, 03/22/2023, Additional history exists Cervical Cancer Screening: HPV 07/11/2029 07/11/2024, 07/11/2024, 11/12/2020 DTaP,Tdap,and Td Vaccines (4 - Td or Tdap) 04/19/2033 04/19/2023, 08/02/2018, 12/18/2014 HIV Screening Completed 12/23/2022 Hepatitis C Screening Completed 12/23/2022 HIB Vaccines Aged Out No longer eligi [...] age to complete this topic Meningococcal B Vaccine Aged Out No l onger eligible based on patient's age to complete this topic Pneumococcal Vaccine: Pediatrics (0 to 5 Years) and At-Risk Patients (6 to 49 Years) Aged Out No longer eligible based on patient's age to complete this topic RSV Immunization Patients Under 20 months Aged Out No longer eligible based on patient's age to complete this topic Varicella Vaccines Aged Out No longer eligible based on patient's age to complete this topic Procedures Procedure Name Priority Date/Time Associated Diagnosis Comments HPV WITH REFLEX GENOTYPE Routine 07/11/2024 2:41 PM EST Encounter for well woman exam with routine gynecological exam Screening for cervical cancer HEPATITIS C SCREENING Routine 12/23/2022 HIV SCREENING Routine 12/23/2022 from Last 3 Months or Most Recently Relevant to Health Maintenance Results * (ABNORMAL) HPV with reflex genotype (07/11/2024 2:41 PM EST) HPV Positive( A) Negative LAB MICROBIOLOGY METHOD 07/13/2024 10:55 AM EST [facility] Brushing/Spatula Cervix uteri structure / Unknown 07/11/2024 2:41 PM EST 07/12/2024 5:57 AM EST Jazmine Conti CNM LAB MOLECULAR DIAGNOSTICS ORD ERABLES Final Result [facility] [address] [place] [address], * HIV Screening (12/23/2022) HIV Screening Abstracted Historical Provider HEALTH MAINTENANCE Final Result * Hepatitis C Screening (12/23/2022) Hepatitis C Screening Abstracted Historical Provider HEALTH MAINTENANCE Final Result from Last 3 Months or Most Recently Relevant to Health Maintenance Insurance MEDICAID - [place] Care Teams Fur Repairer Relationship Specialty Start Date End Date Alejandrina Miller MD [address] [place] [address] [place] [address] PCP - General 12/15/22
== END 2025-02-12 14:23 | disposition home or self-care (01) ==
PROVIDERS: Emergency Provider Emergency Medicine; PCP Internal Medicine
DX: M43.6 Torticollis (principal); M54.2 Cervicalgia; M25.512 Pain in left shoulder; M25.511 Pain in right shoulder
CPT/HCPCS: 96372; 99283; 99284; J1885; J8540